=== PATIENT | male | born 1945 | race Caucasian/White ===

== ENCOUNTER 2020-10-25 19:03 | Emergency (ER) | payer OTHER, SELFPAY ==
[2020-10-25 19:19] VITALS: BP 165/112; PULSE 68; RESP 18; TEMP 36.8; O2SAT 97; BMI 27.3
--- NOTE | 2020-10-25 19:32 | XR_ITS ---
WS: [id number] Left hand, 3 views, 10/25/2020 Clinical Data: pain Comparison: None. Findings: No fractures or dislocations are seen. The soft tissues are unremarkable. The joint spaces are not re markable. XR/XR hand LT min 3V* [id number] Impression: Negative left hand.
--- NOTE | 2020-10-25 19:32 | XR_ITS ---
WS: [id number] Left shoulder, 3 views, 10/25/2020 Clinical Data: pain Comparison: None. Findings: No fractures or dislocations are seen. The AC joint is normal. The adjacent left clavicle, left scapu la and ribs are normal. The soft tissues are unremarkable. XR/XR shoulder LT min 2V* [id number] Impression: Negative left shoulder.
--- NOTE | 2020-10-25 19:36 | W.ED.EXTPRO ---
HPI - Extremity Problem General: Chief complaint: Extremity Injury, Upper Stated complaint: left arm injury Time Seen by Provider: 10/25/20 19:27 Source: patient Mode of arrival: ambulatory Limitations: no limitations History of Present Illness: HPI Narrative: Patient fell in his yard 3 days ago injuring his left shoulder and left hand. He states he had an abrasion over his left hand from his dog prior to his fall. He states he does develop soft tissue swelling to the dorsum of his left hand and is mildly warm. Complains of mild pain to the left anterior shoulder where he has a mild old ecchymosis. Patient denies any neurological changes. He denies any other injuries. Denies any pain to the chest abdomen pelvis neck or back. He denies any other pains through his other extremities. No head injury. MD Complaint: extremity pain and extremity swelling Onset (ago): day(s) (3) Pain Consistency: constant Location: left and upper extremity Severity scale (1-10): 3 Quality: aching Radiation: none Relieving factors: nothing Exacerbating factors: nothing Associated symptoms: Reports myalgias and rash; Deny arthralgias, chest pain, fever(s) or short of breath Review of Systems Const: Denies: fever(s), chills or body aches Eyes: Denies: change in vision ENMT: Denies: throat pain Card: Denies: chest pain Resp: Denies: dyspnea or wheezing GI: Denies: abdominal pain, nausea or vomiting : Denies: flank pain Musc: Reports: extremity pain and extremity swelling; Denies: neck pain, back pain, joint pain, joint swelling, joint redness, joint warmth or joint stiffness Skin/Breast: Reports: rash Neuro: Denies: headache(s) or numbness in extremities Psych: Denies: anxiety [place]/Lymph: Denies: enlarged lymph nodes Physical Exam Const: COMMON NORMALS: no acute distress, patient oriented x3, no limitations and well nourished EXAM LIMITATIONS: altered mental status GENERAL APPEARANCE: cooperative HENMT: COMMON NORMALS: normocephalic and atraumatic HEAD & SCALP: normocephalic and atraumatic FACE & SINUS: normal facial exam Eye: COMMON NORMALS: EOMs intact bilaterally Neck/C-Spine: COMMON NORMALS: full ROM, no lymphadenopathy, supple and no meningeal signs GENERAL: Yes normal visual inspection Lymph: LYMPHATIC: no lymphadenopathy noted Chest: COMMONS NORMALS: normal inspection of the chest and normal palpation of entire chest wall CHEST: No Ecchymosis present and No rash Resp: COMMON NORMALS: normal respiratory effort, No retractions and clear to auscultation bilaterally EFFORT & INSPECTION: No respiratory distress AUSCULTATION: clear to auscultation bilaterally Cardio: COMMON NORMALS: regular rate, regular rhythm and Peripheral pulses 2+ throughout JUGULAR VENOUS DISTENTION: no JVD RATE: regular rate RHYTHM: regular rhythm PERIPHERAL PULSES: Peripheral pulses 2+ throughout GI: COMMON NORMALS: Normal to inspection, nondistended, normoactive bowel sounds present and non-tender : COMMON NORMALS: Yes no CVA tenderness BLADDER/KIDNEY EXAM: Yes no CVA tenderness Back/Pelvis: COMMON NORMALS: no CVA tenderness Extremity: COMMON NORMALS: full ROM, capillary refill normal and no joint enlargement NARRATIVE EXTREMITY EXAM: Mild soft tissue swelling to the dorsum of the left hand with overlying abrasion. No fluctuance or abscess. Mild cellulitis. Normal range of motion of left hand and wrist. Left forearm is normal. Left elbow is normal. Left upper arm is normal. Patient does have mild pain to the left anterior shoulder but has normal range of motion and no crepitus. No dislocation. Neuro: COMMON NORMALS: patient oriented x3, CN's II-XII intact bilaterally, no focal motor deficits and no sensory deficits noted MENINGEAL SIGNS: Yes no meningeal signs Psych: COMMON NORMALS: mental status grossly normal and Normal thought process present THOUGHT PROCESS: Normal thought process present Skin: NARRATIVE SKIN EXAM: Mild cellulitis to the dorsum of the left hand with overlying abrasion that is superficial.See extremity exam. Course Vital Signs: Vital signs: Vital Signs Temperature 98.3 F 10/25/20 19:19 Pulse Rate 68 10/25/20 19:19 Respiratory Rate 18 10/25/20 19:19 Blood Pressure 165/112 10/25/20 19:19 Pulse Oximetry 97 10/25/20 19:19 MDM - Extremity (Nontraumatic) MDM Narrative: Medical decision making narrative: Left hand cellulitis, left hand abrasion, left hand contusion, left hand fracture, left shoulder sprain, left shoulder contusion, left shoulder fracture. Imaging Data^: Xray Ortho: Attestation: I personally reviewed and interpreted this imaging study as follows: My impression: Left shoulder shows possible mild AC separation. Otherwise may be normal. No fracture seen. Left hand appears normal. No foreign body seen no fracture seen. Discharge Plan Discharge Condition: Stable Prescriptions: New cephalexin 500 mg capsule 500 mg PO QID 7 Days Qty: 28 RF: 0 hydrocodone-acetaminophen 5-325 mg tablet 1 tab PO Q6H PRN (Reason: pain) Qty: 10 RF: 0 Discharge Orders: Discharge ED (Routine); Ordered 10/25/20 Ordered By: Cornelio West Referrals: Brook Oseguera MD [Physician] - 4-7 days (as needed. You may have a strain of your Left AC joint.) Discharge Diet: Advance as tolerated Discharge Activity: Resume usual activity Patient Instructions: Cellulitis Activity Restrictions/Additional Instructions: Start cephalexin antibiotic and approximately 16 hours. Return if worse. You may have a left shoulder AC mild separation. Likely no surgical intervention. No fracture seen in your left hand. Coding Level of Care Code ED Theatre Program Director for Radha Fwd Exam Comprehensive
[2020-10-25] MEDS: cefTRIAXone 1,000 MG in lidocaine 1% 2.1 ML 1 MG IM (19:48)
== END 2020-10-25 20:55 | disposition home health service, planned readmission (86) ==
PROVIDERS: Emergency Provider Family Medicine
DX: S49.92XA Unspecified injury of left shoulder and upper arm, initial encounter (principal); W19.XXXA Unspecified fall, initial encounter
CPT/HCPCS: 73030; 73130; 96372; 99283; J0696

== ENCOUNTER 2021-05-02 18:53 | Emergency (ER) | payer OTHER, SELFPAY ==
[2021-05-02 19:51] VITALS: BP 160/108; PULSE 62; RESP 18; TEMP 36.8; O2SAT 97; BMI 32.3
--- NOTE | 2021-05-02 19:55 | XRR_ITS ---
PROCEDURE INFORMATION: Exam: XR Left Ribs with PA Chest Exam date and time: 05/02/2021 7:55 PM Age: 75 years old Clinical indication: Other: Lt. Rib pain; Additional info: Injury, left posterior rib pain TECHNIQUE: Imaging protocol: XR Left ribs with PA chest. Views: 3 views COMPARISON: CR XR shoulder LT min 2V* [id number] 10/25/2020 7:52 PM FINDINGS: Lungs: Lungs are clear bilaterally. Pleural spaces: No pleural effusion. No pneumothorax. Heart/Mediastinum: The cardiac silhouette is mildly enlarged. Mediastinal contours are unremarkable. Bones/joints: Degenerative changes in the spine and shoulders. No acute fracture. XR/XR ribs LT mn 3V w CXR1V [id number] IMPRESSION: 1. No acute cardiopulmonary process. 2. No acute fracture. 3. CT scan of the chest with contrast would be recommended if there is continuing clinical concern for thoracic injury. 4. Incidental/nonacute findings are listed in the report. Radiation Dose CTDIVOL = (mGy): DLP = (mGy-cm)
--- NOTE | 2021-05-02 19:56 | W.ED.BACK ---
HPI - Back Pain/Injury General: Chief Complaint: Back Pain/Injury Stated Complaint: Injury: Left ADB Pain Time Seen by Provider: 05/02/21 19:56 History of Present Illness: HPI Narrative: Patient on Saturday had slipped and fell landing onto his left posterior back against a piece of landscaping timber while moving a couch.. Since then patient has had pain in tenderness to the left posterior ribs just below his shoulder blade. Patient has good range of motion of the shoulders denies pain with his back. Patient reports some pain with deep inspiration. Patient appears well. Patient appears in mild pain that exacerbates with certain movement and palpation. Review of Systems General: Reports: 10 or more systems reviewed and unremarkable except in HPI and below Musc: Reports: other (Left rib pain) Physical Exam Const: COMMON NORMALS: no acute distress and patient oriented x3 GENERAL APPEARANCE: cooperative HENMT: COMMON NORMALS: normocephalic and Normal external nose present HEAD & SCALP: normal to inspection and normocephalic NOSE: Normal external nose present Eye: GENERAL EYE: appearance normal, both eyes and all related structures Neck/C-Spine: COMMON NORMALS: full ROM Chest: CHEST: Yes tenderness rib (Posterior left lower ribs) Resp: COMMON NORMALS: normal respiratory effort and clear to auscultation bilaterally EFFORT & INSPECTION: Yes able to speak in complete sentences AUSCULTATION: clear to auscultation bilaterally Cardio: COMMON NORMALS: regular rate and regular rhythm RATE: regular rate RHYTHM: regular rhythm GI: COMMON NORMALS: non-tender Back/Pelvis: COMMON NORMALS: thoracic and lumbar spine normal to inspection Extremity: COMMON NORMALS: normal to inspection Neuro: COMMON NORMALS: patient oriented x3 and moves all extremities Psych: COMMON NORMALS: mental status grossly normal and cooperative Skin: COMMON NORMALS: no rashes or lesions noted GENERAL SKIN EXAM: no rashes or lesions noted Course Vital Signs: Vital signs: Vital Signs Temperature 98.2 F 05/02/21 19:51 Pulse Rate 62 05/02/21 19:51 Respiratory Rate 18 05/02/21 19:51 Blood Pressure 160/108 05/02/21 19:51 Pulse Oximetry 97 05/02/21 19:51 MDM - Back Pain/Injury MDM Narrative: Medical decision making narrative: 75-year-old male comes in with some left posterior rib pain. Patient appears well. Patient appears no acute distress. Patient states about 2 days ago he was lifting up a couch when he tripped and fell backwards striking a landscaping tender against his left posterior ribs. Patient had some pain and discomfort to the area since then. On exam respirations are even lungs are clear to auscultation. Skin is warm and dry. Vital signs are normal. Differential diagnosis includes but not limited to rib fracture, contusion, pneumothorax. Chest x-ray was normal. Rib films were negative for any acute fracture. Reviewed exam with patient with recommendations for treatment and follow-up. Patient was given a 7-1/2 mg hydrocodone with acetaminophen tablet in the ER. Reviewed record noted a previous prescription for hydrocodone in December of this year but no recent prescription was written for. Patient was recommended to use acetaminophen to help control pain and use hydrocodone for breakthrough pain. Patient reported understanding. Discharge Plan Discharge Patient Disposition: Home Clinical Impression: Contusion of rib on left side Qualifiers: Encounter type: initial encounter Qualified Code(s): S20.212A - Contusion of left front wall of thorax, initial encounter Condition: Stable Prescriptions: Continued hydrocodone-acetaminophen 5-325 mg tablet 1 tab PO Q6H PRN (Reason: pain) Qty: 10 RF: 0 Discharge Orders: Discharge ED (Routine); Ordered 05/02/21 Ordered By: Ruperto Almeida Discharge Diet: Usual diet Discharge Activity: Increase activity as tolerated Patient Instructions: Musculoskeletal Pain (ED), Opioid Safety Activity Restrictions/Additional Instructions: Activity as tolerated. Gentle stretching and range of motion exercises. Use acetaminophen to control pain. Use hydrocodone for breakthrough pain. Use ice and heat for further pain control. Follow-up with primary care for persistent complaints. Return to the ER for new concerns. Coding Level of Care Code ED Assembly Loader for Radha Fwefraín Exam Comprehensive
[2021-05-02] MEDS: HYDROcodone-acetaminophen 7.5-325 mg Tablet 1 TAB PO (20:39)
[2021-05-02 21:28] VITALS: PULSE 71; RESP 16; O2SAT 96
== END 2021-05-02 21:29 | disposition home or self-care (01) ==
PROVIDERS: Emergency Provider Nurse Practitioner Family
DX: S20.212A Contusion of left front wall of thorax, initial encounter (principal); W01.198A Fall on same level from slipping, tripping and stumbling with subsequent striking against other object, initial encounter; Z79.891 Long term (current) use of opiate analgesic
CPT/HCPCS: 71101; 99282

== ENCOUNTER 2021-09-23 17:32 | Emergency (ER) | payer OTHER, SELFPAY ==
[2021-09-23 17:42] VITALS: BP 165/106; PULSE 66; RESP 18; TEMP 36.7; O2SAT 98; BMI 22.8
--- NOTE | 2021-09-23 17:53 | ECG_ITS ---
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 Measurements Intervals [place] Rate: 63 P: 58 CT: 139 QRS: 35 QRSD: 131 T: -6 QT: 433 QTc: 445 Interpretive Statements ELECTRONIC VENTRICULAR PACEMAKER ABNORMAL RHYTHM ECG No previous ECG available for comparison Electronically Signed On 09-24-2021 17:26:00 CDT by Jovani Lyon M.D. [email or web address] [email or web address] Control Systemsuniversity hospitals [facility].[employer]/store/OM/[id number]
--- NOTE | 2021-09-23 17:57 | CTR_ITS ---
PROCEDURE INFORMATION: Exam: CT Head Without Contrast Exam date and time: 09/23/2021 6:21 PM Age: 76 years old Clinical indication: Other: Multiple falls / loss of balance; Additional info: Dizzy TECHNIQUE: Imaging protocol: Computed tomography of the head without contrast. Radiation optimization: All CT scans at this facility use at least one of these dose optimization techniques: automated exposure control; mA and/or kV adjustment per patient size (includes targeted exams where dose is matched to clinical indication); or iterative reconstruction. COMPARISON: No relevant prior studies available. RADIATION DOSE METRICS: Total DLP (mGy-cm): 807.6 FINDINGS: Brain: Mild atrophy and moderate white matter chronic microvascular changes are noted. No hemorrhage or evidence of acute infarction. Cerebral ventricles: No ventriculomegaly. Paranasal sinuses: Visualized sinuses are unremarkable. No fluid levels. Mastoid air cells: Visualized mastoid air cells are well aerated. Bones/joints: Unremarkable. No acute fracture. Soft tissues: Unremarkable. CT/CT head wo con* [id number] IMPRESSION: No acute intracranial abnormality
--- NOTE | 2021-09-23 17:57 | XRR_ITS ---
PROCEDURE INFORMATION: Exam: XR Right Elbow Exam date and time: 09/23/2021 5:15 PM Age: 76 years old Clinical indication: Injury or trauma; Fall; Blunt trauma (contusions or hematomas); Elbow; Right TECHNIQUE: Imaging protocol: XR Right elbow. Views: 3 or more views. COMPARISON: No relevant prior studies available. FINDINGS: Bones/joints: Mild degenerative changes are seen in the right elbow. No fracture or dislocation. Soft tissues: Normal. XR/XR elbow RT min 3V* [id number] IMPRESSION: No acute fracture or dislocation.
--- NOTE | 2021-09-23 17:57 | XRR_ITS ---
PROCEDURE INFORMATION: Exam: XR Left Elbow Exam date and time: 09/23/2021 5:12 PM Age: 76 years old Clinical indication: Injury or trauma; Fall; Blunt trauma (contusions or hematomas); Elbow; Left TECHNIQUE: Imaging protocol: XR Left elbow. Views: 3 or more views. COMPARISON: No relevant prior studies available. FINDINGS: Bones/joints: Mild degenerative changes are present in the ulnohumeral joint. No fracture or dislocation. Soft tissues: Normal. XR/XR elbow LT min 3V* [id number] IMPRESSION: No fracture or dislocation in the left elbow.
[2021-09-23 17:59] VITALS: BP 172/107; PULSE 65; O2SAT 96
--- NOTE | 2021-09-23 18:05 | ED_ITS ---
HPI - Fall General: Chief Complaint: Fall Stated Complaint: Falling alot with dizziness, losing balance Time Seen by Provider: 09/23/21 17:46 Source: patient Mode of arrival: ambulatory Limitations: no limitations History of Present Illness: 76-year-old male who states that he has frequent falls. He states this is actually been going on for roughly a year. He states that he has a real shuffling gait and once he gets to leaning forward he falls. He states he had 2 falls today. He states that he fell on his outside and also fell at the store he has bilateral elbow pain. States he had some slight dizziness he is never been seen for his falls does not use a cane or walker. Denies any hip pain or neck pain. Associated symptoms-after fall: Denies abdominal pain or chest pain Review of Systems Const: Denies: fever(s), chills, body aches or change in appetite Eyes: Denies: blurry vision or eye discomfort ENMT: Denies: throat pain or dental pain Card: Denies: chest pain Resp: Denies: dyspnea GI: Denies: abdominal pain, nausea, vomiting or diarrhea : Denies: dysuria Musc: Reports: extremity pain Skin/Breast: Denies: rash Neuro: Reports: frequent falls and dizziness Psych: Denies: depression Sanford/Lymph: Denies: easy bruising All/Imm: Denies: urticaria Physical Exam Const: COMMON NORMALS: no acute distress, patient oriented x3 and healthy appearing HENMT: COMMON NORMALS: normocephalic and atraumatic HEAD & SCALP: normocephalic and atraumatic Eye: COMMON NORMALS: Equal, round and reactive pupils present and EOMs intact bilaterally PUPIL: Yes Equal, round and reactive pupils present Neck/C-Spine: COMMON NORMALS: full ROM and supple Chest: COMMONS NORMALS: normal inspection of the chest and normal palpation of entire chest wall Resp: COMMON NORMALS: normal respiratory effort, No retractions, No use of accessory muscles and clear to auscultation bilaterally AUSCULTATION: clear to auscultation bilaterally Cardio: COMMON NORMALS: regular rate, regular rhythm and No murmurs present (Cardio) RATE: regular rate RHYTHM: regular rhythm GI: COMMON NORMALS: Normal to inspection, nondistended, normoactive bowel sounds present, Soft to palpation, non-tender and no masses PALPATION: Yes Soft to palpation Extremity: COMMON NORMALS: full ROM NARRATIVE EXTREMITY EXAM: Abrasions to bilateral elbows with slight tenderness no deformity Neuro: COMMON NORMALS: patient oriented x3, moves all extremities and no focal motor deficits Psych: COMMON NORMALS: mental status grossly normal, Normal thought process present and cooperative THOUGHT PROCESS: Normal thought process present Skin: COMMON NORMALS: no rashes or lesions noted and no wounds GENERAL SKIN EXAM: no rashes or lesions noted Course Vital Signs: Vital signs: Vital Signs Temperature 98.1 F 09/23/21 17:42 Pulse Rate 65 09/23/21 17:59 Respiratory Rate 18 09/23/21 17:42 Blood Pressure 172/107 09/23/21 17:59 Pulse Oximetry 96 09/23/21 17:59 MDM - Fall Medical Decision Making Patient presents here with multiple falls over the last year. I did inform patient he likely should start walking with a cane to prevent these falls since they are frequent his lab work head CT are all normal he stable for discharge follow-up with PCP. Lab Data : 09/23/21 18:06 09/23/21 18:06 Radiology Impressions Elbow X-Ray 09/23/21 17:57 IMPRESSION: No acute fracture or dislocation. Head CT 09/23/21 17:57 IMPRESSION: No acute intracranial abnormality Laboratory Results WBC 7.0 10^3/uL (4.0-10.0) 09/23/21 18:06 RBC 5.77 10^6/uL (4.1-5.3) H 09/23/21 18:06 Hgb 16.3 g/dL (11.7-16.6) 09/23/21 18:06 Hct 50.3 % (42.0-52.0) 09/23/21 18:06 MCV 87.2 fl (80-94) 09/23/21 18:06 MCH 28.2 pg (28.0-34.0) 09/23/21 18:06 MCHC 32.4 g/dL (30.0-36.0) 09/23/21 18:06 RDW 12.5 % (12.1-15.1) 09/23/21 18:06 Plt Count 222 10^3/cmm (130-400) 09/23/21 18:06 MPV 10.4 fL (7.4-10.4) 09/23/21 18:06 Neut % (Auto) 69.6 % 09/23/21 18:06 Lymph % (Auto) 22.6 % 09/23/21 18:06 [place] % (Auto) 6.1 % 09/23/21 18:06 Eos % (Auto) 1.3 % 09/23/21 18:06 Baso % (Auto) 0.3 % 09/23/21 18:06 Neut # (Auto) 4.88 10^3/uL (1.8-7.7) 09/23/21 18:06 Lymph # (Auto) 1.6 10^3/uL (0.8-4.8) 09/23/21 18:06 [place] # (Auto) 0.4 10^3/uL (0.2-0.9) 09/23/21 18:06 Eos # (Auto) 0.1 10^3/uL (0.0-0.8) 09/23/21 18:06 Baso # (Auto) 0.0 10^3/uL (0.0-0.1) 09/23/21 18:06 Nucleated RBC % (auto) 0 % 09/23/21 18:06 Nucleated RBCs # 0.0 /100WBC 09/23/21 18:06 Sodium 139 mmol/L (136-145) 09/23/21 18:06 Potassium 4.2 mmol/L (3.5-5.1) 09/23/21 18:06 Chloride 103 mmol/L (98-107) 09/23/21 18:06 Carbon Dioxide 24 mmol/L (22-29) 09/23/21 18:06 Anion Gap 16.2 (5-19) 09/23/21 18:06 BUN 26 mg/dL (8-23) H 09/23/21 18:06 Creatinine 1.8 mg/dL (0.7-1.2) H 09/23/21 18:06 GFR Calculation Not Reportable 09/23/21 18:06 Glucose 85 mg/dL (65-115) 09/23/21 18:06 Calculated Osmolality 292 mOsm/kg (285-295) 09/23/21 18:06 Calcium 9.5 mg/dL (8.5-10.5) 09/23/21 18:06 Total Bilirubin 0.4 mg/dL (0.15-1.2) 09/23/21 18:06 AST 23 U/L (0-40) 09/23/21 18:06 ALT 14 U/L (0-41) 09/23/21 18:06 Alkaline Phosphatase 127 IU/L (40-130) 09/23/21 18:06 Total Protein 7.7 g/dL (6.6-8.7) 09/23/21 18:06 Albumin 4.4 g/dL (3.5-5.2) 09/23/21 18:06 Globulin 3.3 g/dL (1.3-4.6) 09/23/21 18:06 EKG Data EKG 1: I personally reviewed and interpreted this EKG as follows: EKG interpretation date: 09/23/21 EKG interpretation time: 17:08 Interpretation: paced hr 63 no t or t wave abnormalities qrs 131 qtc 440 Discharge Plan Discharge Patient Disposition: Home Clinical Impression: Falls frequently Abrasion of elbow Qualifiers: Encounter type: initial encounter Laterality: right Qualified Code(s): S50.311A - Abrasion of right elbow, initial encounter Condition: Stable Prescriptions: No Action hydrocodone-acetaminophen 5-325 mg tablet 1 tab PO Q6H PRN (Reason: pain) Qty: 10 0RF Discharge Orders: Discharge ED (Routine); Ordered 09/23/21 Ordered By: Dulce Braun Discharge Diet: Advance as tolerated Discharge Activity: Resume usual activity Patient Instructions: Abrasion (ED), Fall Prevention (ED) Coding Level of Care Code ED Invasive Cardiovascular Technologist for Radha Fwd Exam Comprehensive
[2021-09-23 18:18] LABS: Basophils % 0.3 %; Eosinophils # 0.1 10^3/uL (0.0-0.8); Eosinophils % 1.3 %; Hematocrit 50.3 % (42.0-52.0); Hemoglobin 16.3 g/dL (11.7-16.6); Lymphocytes # 1.6 10^3/uL (0.8-4.8); Lymphocytes % 22.6 %; Mean Corpuscular HGB Conc 32.4 g/dL (30.0-36.0); Mean Corpuscular Hemoglobin 28.2 pg (28.0-34.0); Mean Corpuscular Volume 87.2 fl (80-94); Mean Platelet Volume 10.4 fL (7.4-10.4); Monocytes # 0.4 10^3/uL (0.2-0.9); Monocytes % 6.1 %; Neutrophils # 4.88 10^3/uL (1.8-7.7); Neutrophils % 69.6 %; Nucleated Red Blood Cells % 0 %; Platelet Count 222 10^3/cmm (130-400); Red Blood Count 5.77 10^6/uL (4.1-5.3); Red Cell Distribution Width 12.5 % (12.1-15.1)
[2021-09-23 18:53] LABS: Alanine Aminotransferase 14 U/L (0-41); Albumin Level 4.4 g/dL (3.5-5.2); Alkaline Phosphatase 127 IU/L (40-130); Anion Gap 16.2 (5-19); Aspartate Amino Transferase 23 U/L (0-40); Blood Urea Nitrogen 26 mg/dL (8-23); Calcium 9.5 mg/dL (8.5-10.5); Carbon Dioxide 24 mmol/L (22-29); Chloride 103 mmol/L (98-107); Globulin 3.3 g/dL (1.3-4.6); Glucose 85 mg/dL (65-115); Osmolality Calculated 292 mOsm/kg (285-295); Potassium 4.2 mmol/L (3.5-5.1); Sodium 139 mmol/L (136-145); Total Bilirubin 0.4 mg/dL (0.15-1.2); Total Protein 7.7 g/dL (6.6-8.7)
== END 2021-09-23 19:50 | disposition home or self-care (01) ==
PROVIDERS: Emergency Provider Emergency Medicine
DX: R29.6 Repeated falls (principal); S50.311A Abrasion of right elbow, initial encounter; W19.XXXA Unspecified fall, initial encounter
CPT/HCPCS: 70450; 73080; 80053; 85025; 93005; 99282

== ENCOUNTER 2021-09-24 22:45 | Emergency (ER) | payer OTHER, SELFPAY ==
[2021-09-24 22:54] VITALS: BP 210/109; PULSE 64; RESP 18; TEMP 36.8; O2SAT 98; BMI 30.4
--- NOTE | 2021-09-24 23:59 | XRR_ITS ---
PROCEDURE INFORMATION: Exam: XR Left Hip Exam date and time: 09/24/2021 11:11 PM Age: 76 years old Clinical indication: Injury or trauma; Blunt trauma (contusions or hematomas); Left; Patient HX: C/O L hip pain after fall in yard; Additional info: Fall injury with hip pain TECHNIQUE: Imaging protocol: XR Left hip. Views: 2 or 3 views hip with pelvis when performed. COMPARISON: No relevant prior studies available. FINDINGS: Bones/joints: Unremarkable. No acute fracture. Soft tissues: Unremarkable. XR/XR hip LT 2-3V wo/w pel* [id number] IMPRESSION: No acute findings.
--- NOTE | 2021-09-24 23:59 | CTR_ITS ---
PROCEDURE INFORMATION: Exam: CT Cervical Spine Without Contrast Exam date and time: 09/25/2021 12:24 AM Age: 76 years old Clinical indication: Injury or trauma; Blunt trauma; Patient HX: C/O neck pain after fall in yard; Additional info: Fall and hit head-neck pain TECHNIQUE: Imaging protocol: Computed tomography images of the cervical spine without contrast. Radiation optimization: All CT scans at this facility use at least one of these dose optimization techniques: automated exposure control; mA and/or kV adjustment per patient size (includes targeted exams where dose is matched to clinical indication); or iterative reconstruction. COMPARISON: CT head wo con* [id number] 09/25/2021 12:21 AM RADIATION DOSE METRICS: Total DLP (mGy-cm): 563.44 FINDINGS: Bones/joints: See Discs/Spinal canal/Neural foramina finding. Discs/Spinal canal/Neural foramina: There is a diffuse loss of disc height seen within the cervical spine compatible with degenerative disc disease. A mild 2.3 mm anterior spondylolisthesis of C3 on C4 and 2 mm anterior spondylolisthesis C4 on C5 is seen likely secondary to the degenerative disc disease and laxity of the longitudinal ligaments. Lungs: Lung apices are normal. Soft tissues: Unremarkable. CT/CT cervical spin wo con* [id number] IMPRESSION: There are no acute osseous findings.
--- NOTE | 2021-09-24 23:59 | XRR_ITS ---
PROCEDURE INFORMATION: Exam: XR Left Hand Exam date and time: 09/24/2021 11:09 PM Age: 76 years old Clinical indication: Left; Patient HX: C/O L hand pain w lac to 4-5 fingers fell in yard; Additional info: Fall with laceration injury to 4th and 5th digits TECHNIQUE: Imaging protocol: XR Left hand. Views: 3 or more views. COMPARISON: CR XR hand LT min 3V* [id number] 10/25/2020 7:52 PM FINDINGS: Bones/joints: Normal. Soft tissues: There is swelling seen at the proximal interphalangeal joint of the 5th digit of the left hand. XR/XR hand LT min 3V* [id number] IMPRESSION: There are no acute osseous findings.
--- NOTE | 2021-09-24 23:59 | CTR_ITS ---
PROCEDURE INFORMATION: Exam: CT Head Without Contrast Exam date and time: 09/25/2021 12:21 AM Age: 76 years old Clinical indication: Injury or trauma; Blunt trauma (contusions or hematomas); Without loss of consciousness; Patient HX: C/O MADERA after fall in yard; Additional info: Fall and hit head TECHNIQUE: Imaging protocol: Computed tomography of the head without contrast. Radiation optimization: All CT scans at this facility use at least one of these dose optimization techniques: automated exposure control; mA and/or kV adjustment per patient size (includes targeted exams where dose is matched to clinical indication); or iterative reconstruction. COMPARISON: CT head wo con* [id number] 09/23/2021 6:21 PM RADIATION DOSE METRICS: Total DLP (mGy-cm): 848 FINDINGS: Brain: There is mild diffuse cerebral atrophy. Patchy areas of hypoattenuation are seen in the deep white matter of the cerebral hemispheres bilaterally compatible with deep white matter microvascular disease. Cerebral ventricles: No ventriculomegaly. Paranasal sinuses: Visualized sinuses are unremarkable. No fluid levels. Mastoid air cells: Visualized mastoid air cells are well aerated. Bones/joints: Unremarkable. No acute fracture. Soft tissues: There is soft tissue swelling and hematoma formation seen within the parietal scalp on the left. CT/CT head wo con* [id number] IMPRESSION: There are no acute intracranial findings.
[2021-09-25] MEDS: lidocaine 2% INJ 20 mL INJECTION
--- NOTE | 2021-09-25 00:01 | W.ED.FALL ---
HPI - Fall General: Chief Complaint: Fall Stated Complaint: Fell Left Hand Gash Time Seen by Provider: 09/24/21 23:45 History of Present Illness: Patient is a 76-year-old male comes to the ED after having a fall. Patient said he was walking outside in his yard and tripped falling onto gravel. He says his head bumped the shed he was next to. While falling his left hand hit a sharp edge of metal on the shed causing laceration to his fourth and fifth digit. Reports having some difficulty extending fourth digit on left hand. Says he has hypertension and takes lisinopril 10 mg daily. He has been out of his lisinopril for several weeks now and is trying to eat scheduled with his PCP at the [place] for follow-up. Associated symptoms-after fall: Denies abdominal pain, chest pain, headache(s), hematuria or neck pain Review of Systems Const: Denies: fever(s), chills or fatigue Eyes: Denies: change in vision or eye discomfort ENMT: Denies: throat pain, odynophagia, nasal discharge or nasal congestion Card: Denies: chest pain, palpitations, edema, swelling of feet/ankles, dyspnea on exertion or orthopnea Resp: Denies: dyspnea, productive cough or non-productive cough GI: Denies: abdominal pain, nausea, vomiting, diarrhea, constipation or hematochezia : Denies: flank pain, difficulty urinating, dysuria or hematuria Musc: Reports: limited range of motion (Left hand-fourth digit trouble extending finger.); Denies: neck pain, back pain or extremity swelling Skin/Breast: Reports: new lesions (2 lacerations-dorsal fourth and fifth digit); Denies: rash Neuro: Denies: headache(s), numbness in extremities or weakness in extremities [facility] ED PFSH: Medical History Hypertension Surgical History No pertinent past surgical history Physical Exam Const: COMMON NORMALS: no acute distress, patient oriented x3 and alert GENERAL APPEARANCE: cooperative and comfortable HENMT: COMMON NORMALS: normocephalic and atraumatic HEAD & SCALP: normocephalic and atraumatic; no Peo's sign and no raccoon eyes MOUTH: Normal oral and palatal mucosa present THROAT: posterior oropharynx normal and uvula midline Neck/C-Spine: COMMON NORMALS: supple GENERAL: Yes normal visual inspection Resp: COMMON NORMALS: normal respiratory effort, No retractions, No use of accessory muscles and clear to auscultation bilaterally AUSCULTATION: clear to auscultation bilaterally Cardio: COMMON NORMALS: regular rate, regular rhythm, S1 normal heart sound present, S2 normal heart sound present, No gallops present (Cardio), No clicks present (Cardio), No murmurs present (Cardio) and Peripheral pulses 2+ throughout RATE: regular rate RHYTHM: regular rhythm HEART SOUNDS: S1 normal heart sound present and S2 normal heart sound present PERIPHERAL PULSES: Peripheral pulses 2+ throughout GI: COMMON NORMALS: Normal to inspection, nondistended, normoactive bowel sounds present, Soft to palpation, non-tender and no masses PALPATION: Yes Soft to palpation : COMMON NORMALS: Yes no CVA tenderness BLADDER/KIDNEY EXAM: Yes no CVA tenderness Back/Pelvis: COMMON NORMALS: no CVA tenderness Extremity: NARRATIVE EXTREMITY EXAM: Left hand?fifth digit full range of motion. 2 cm linear laceration over dorsal aspect. No nailbed or nail damage noted. Fourth digit?1.5 cm linear laceration over dorsal PIP joint region. Flexion intact, but patient unable to extend digit distally from PIP joint. Findings suggestive of likely a tendon laceration. Neuro: COMMON NORMALS: patient oriented x3, CN's II-XII intact bilaterally, moves all extremities, no focal motor deficits and no sensory deficits noted SENSORIUM/ORIENTATION: Yes alert SPEECH: speech normal Skin: GENERAL SKIN EXAM: dry skin Procedures Laceration Laceration 1: Site: hand (5th digit) Side (If applicable): left Size (cm): 2 Description: linear and clean Depth: simple, single layer Local Anesthetic: lidocaine 2% (Digital nerve block performed) Amount of anesthesia used (mL): 6 Pre-repair: irrigated extensively (With normal saline and beta iodine wash.) Skin layer closed with: nylon Size (cm): 4-0 Number of sutures: 6 Technique: simple, interrupted Laceration 2: Site: hand (4th digit) Side (If applicable): left Size (cm): 1.5 Description: linear and clean Depth: simple, single layer Local Anesthetic: lidocaine 2% Amount of anesthesia used (mL): 5 Pre-repair: irrigated extensively (With normal saline and beta iodine wash.) Skin layer closed with: nylon Size (cm): 4-0 Number of sutures: 6 Technique: simple, interrupted Nerve Block Nerve Block 1: Time out performed: Yes Local Anesthetic: lidocaine 2% Amount of anesthesia used (mL): 6 Side: left Nerve Blocks: digital (5th digit) Procedure Successful: Yes Patient Tolerated Procedure: well Complications: none Course Vital Signs: Vital signs: Vital Signs Temperature 98.2 F 09/24/21 22:54 Pulse Rate 84 09/25/21 03:00 Respiratory Rate 18 09/25/21 03:00 Blood Pressure 170/100 09/25/21 03:00 Pulse Oximetry 95 09/25/21 03:00 MDM - Fall Medical Decision Making Patient is a 76-year-old male comes to the ED after fall. Patient tripped over something outside and he fell and hit his head on shed. While falling his left hand hit a metal edge of the shed causing a laceration to his fourth and fifth digits. Denies any loss of consciousness. He is complaining of having some left hip pain as well. Vitals are stable. Neuro exam is benign. Patient has a laceration over the dorsal aspect of his fifth digit that is approximately 2 cm in length. He has another 1.5 cm linear laceration over fourth digit dorsal PIP joint region and patient is having problems extending distal aspect of finger past PIP joint. Findings suggestive of likely a lacerated extensor tendon digit. X-rays of left hip and left hand showed no acute fractures or findings. CT of head and cervical spine showed no acute fractures or intracranial findings. Patient is laceration site was irrigated extensively with normal saline and beta iodine. On the fifth digit a nerve block was used with lidocaine 2% and on the fourth digit local lidocaine 2% was used. 6 sutures were placed in the fifth digit laceration and 5 sutures were placed in the fourth digit laceration. Patient's fourth digit was put in finger splint. I placed an order with case management for patient to be referred to Ortho for further follow-up of fourth digit extensor tendon laceration. Patient was discharged home with a prescription for hydrocodone for pain and cephalexin as prophylactic treatment. He was told that case management will contact him in the next couple days to set up an appointment with Ortho. Return to ED precautions given. Patient understood and agreed with plan. Lab Data Radiology Impressions Cervical Spine CT 09/24/21 23:59 IMPRESSION: There are no acute osseous findings. Hand X-Ray 09/24/21 23:59 IMPRESSION: There are no acute osseous findings. Head CT 09/24/21 23:59 IMPRESSION: There are no acute intracranial findings. Hip/Pelvis X-Ray 09/24/21 23:59 IMPRESSION: No acute findings. Discharge Plan Discharge Patient Disposition: Home Clinical Impression: Finger laceration involving tendon Qualifiers: Encounter type: initial encounter Qualified Code(s): S61.219A - Laceration without foreign body of unspecified finger without damage to nail, initial encounter Condition: Stable Prescriptions: New cephalexin 500 mg capsule 500 mg PO Q6H 7 Days Qty: 28 0RF lisinopril 10 mg tablet 10 mg PO DAILY Qty: 30 0RF No Action hydrocodone-acetaminophen 5-325 mg tablet 1 tab PO Q6H PRN (Reason: pain) Qty: 10 0RF Discharge Orders: Discharge ED (Routine); Ordered 09/25/21 Ordered By: Omar Limon Discharge Diet: Regular Discharge Activity: Increase activity as tolerated Activity Restrictions/Additional Instructions: Follow-up with medical provider as directed. Case management should be contacting you in the next 2 days to set up an appointment with Ortho for follow-up of extensor tendon finger laceration. Wear finger splint daily. Keep laceration sites dry for the next 24 hours. Make sure to clean and bandage daily. Medications as prescribed. Return to the ER or your medical provider if condition worsens. Please read and understand discharge instructions. Thank you for choosing [facility] for your healthcare needs today. Please realize this is an emergency room and that we are providing you with a medical screening exam and this may not be complete and all inclusive of all the testing and or work up that you may need to determine your ailment or severity of your illness. It is very important that you follow up as instructed or that you return to the Emergency Department should you have concerns or if your condition changes or worsens in any way. Coding Level of Care Code ED Integrated Circuit Ic Layout Designer for aRdha Padilla Exam Comprehensive
[2021-09-25] MEDS: cephALEXin 500 mg Capsule PO (02:53)
[2021-09-25] MEDS: HYDROcodone-acetaminophen 5-325 mg Tablet 1 TAB PO (02:54)
[2021-09-25] MEDS: neomycin-poly-bacitracin oint 0.9 gm Pkt 1 APPLIC TOPICAL (02:54)
[2021-09-25] MEDS: lisinopril 10 mg Tablet PO (02:59)
[2021-09-25 03:00] VITALS: BP 170/100; PULSE 84; RESP 18; O2SAT 95
--- NOTE | 2021-09-25 10:39 | DCPLANNER ---
Addendum entered by Patsy Niño 10/03/21 14:03: department store general manager called patient to see where patient would like to be referred to, unable to speak with anyone at this time. Addendum entered by Patsy Niño 10/02/21 08:35: late entry - food general manager called patient on 09.26.21, 09.27.21, 09.28.21 to inform patient that the Dr. Oseguera from ortho stated that patient would need to see a hand specialist. department store general manager called phone number [phone] left a message for patient to return sap architect phone call. department store general manager also called phone number [phone], left a voicemail. Addendum entered by Patsy Niño 09/25/21 10:51: Patient has [employer] insurance, food general manager sent patients information to October, with [employer] [facility] [employer] community, so that the authorization process could be started for patient. Original Note: department store general manager had message to schedule a follow up appointment for patient with ortho. department store general manager called the ortho clinic, spoke with Enriqueta, gave clinic patients information. department store general manager was told that patients information would be printed and reviewed. Clinic will call patient with appointment information.
== END 2021-09-25 03:14 | disposition home or self-care (01) ==
PROVIDERS: Emergency Provider Physician Assistant
DX: S61.217A Laceration without foreign body of left little finger without damage to nail, initial encounter (principal); S61.215A Laceration without foreign body of left ring finger without damage to nail, initial encounter; I10 Essential (primary) hypertension; W01.118A Fall on same level from slipping, tripping and stumbling with subsequent striking against other sharp object, initial encounter
CPT/HCPCS: 70450; 72125; 73130; 73502; 99283

== ENCOUNTER 2022-01-23 18:38 | Emergency (ER) | payer OTHER, SELFPAY ==
[2022-01-23 19:45] VITALS: BP 165/100; PULSE 61; RESP 18; TEMP 37.1; O2SAT 98; BMI 24.5
[2022-01-23 21:29] LABS: Add Urine Culture? Yes; Add Urine Microscopic? YES; Bacteria Urine 4+ /hpf; Bilirubin Urine Neg (Negative); Blood Urine 3+ (Negative); Glucose Urine UA Norm (Normal); Ketones Urine Negative (Negative); Leukocyte Esterase Urine 2+ (Negative); Nitrate Urine Positive (Negative); Protein Urine 1+ (Negative); RBC Urine 0-4 /hpf (0-2); Specific Gravity, Urine 1.015 (1.005-1.030); Squamous Epithelial Cell Urine 0-4 /hpf (0-5); Urine Appearance Cloudy (CLEAR); Urine Color Yellow (Yellow); Urobilinogen Urine Norm (Negative); WBC Urine TOO NUMEROUS TO CNT /hpf (0-5); pH Urine 5 (5-7)
[2022-01-23 22:27] LABS: Basophils % 0.4 %; Eosinophils # 0.1 10^3/uL (0.0-0.8); Eosinophils % 1.9 %; Hematocrit 43.8 % (42.0-52.0); Hemoglobin 14.9 g/dL (11.7-16.6); Lymphocytes # 2.4 10^3/uL (0.8-4.8); Lymphocytes % 32.5 %; Mean Corpuscular Hemoglobin 28.7 pg (28.0-34.0); Mean Corpuscular Volume 84.2 fl (80-94); Mean Platelet Volume 10.1 fL (7.4-10.4); Monocytes # 0.5 10^3/uL (0.2-0.9); Monocytes % 6.8 %; Neutrophils # 4.28 10^3/uL (1.8-7.7); Neutrophils % 58.1 %; Nucleated Red Blood Cells % 0 %; Platelet Count 263 10^3/cmm (130-400); Red Cell Distribution Width 12.7 % (12.1-15.1); White Blood Count 7.4 10^3/uL (4.0-10.0)
[2022-01-23 22:49] LABS: Alanine Aminotransferase 11 U/L (0-41); Alkaline Phosphatase 97 IU/L (40-130); Anion Gap 14.3 (5-19); Aspartate Amino Transferase 18 U/L (0-40); Blood Urea Nitrogen 27 mg/dL (8-23); Calcium 9.2 mg/dL (8.5-10.5); Carbon Dioxide 25 mmol/L (22-29); Chloride 105 mmol/L (98-107); Globulin 2.6 g/dL (1.3-4.6); Glucose 80 mg/dL (65-115); Lipase 71 U/L (13-60); Osmolality Calculated 294 mOsm/kg (285-295); Potassium 4.3 mmol/L (3.5-5.1); Sodium 140 mmol/L (136-145); Total Bilirubin 0.5 mg/dL (0.15-1.2); Total Protein 6.6 g/dL (6.6-8.7)
--- NOTE | 2022-01-24 00:25 | W.ED.ABDPA2 ---
HPI - Abdominal Pain General: Chief Complaint: Abdominal Pain Stated Complaint: [place] Pee\ABD Pain Time Seen by Provider: 01/24/22 00:25 History of Present Illness: 76-year-old male patient comes in today with complaints of urinary difficulty. Patient reports frequency and decreased output. Patient denies any nausea or vomiting. Patient appears nontoxic. Patient appears in no pain. Review of Systems General: Reports: 10 or more systems reviewed and unremarkable except in HPI and below : Reports: difficulty urinating, urinary frequency and urinary urgency PFSH ED PFSH: Medical History Hypertension Surgical History No pertinent past surgical history Physical Exam Const: COMMON NORMALS: alert HENMT: COMMON NORMALS: normocephalic HEAD & SCALP: normocephalic Neck/C-Spine: COMMON NORMALS: full ROM Resp: COMMON NORMALS: normal respiratory effort and clear to auscultation bilaterally AUSCULTATION: clear to auscultation bilaterally Cardio: COMMON NORMALS: regular rate RATE: regular rate GI: COMMON NORMALS: Soft to palpation and non-tender PALPATION: Yes Soft to palpation : COMMON NORMALS: Yes no CVA tenderness BLADDER/KIDNEY EXAM: Yes no CVA tenderness Back/Pelvis: COMMON NORMALS: no CVA tenderness Extremity: COMMON NORMALS: no pedal edema Neuro: SENSORIUM/ORIENTATION: Yes alert Skin: COMMON NORMALS: no rashes or lesions noted GENERAL SKIN EXAM: no rashes or lesions noted Course Vital Signs: Vital signs: Vital Signs Temperature 98.7 F 01/23/22 19:45 Pulse Rate 61 01/23/22 19:45 Respiratory Rate 18 01/23/22 19:45 Blood Pressure 165/100 01/23/22 19:45 Pulse Oximetry 98 01/23/22 19:45 MDM - Abdominal Pain Medical Decision Making Patient came in today for concerns of urinary tract infection. On exam patient appears nontoxic. Abdomen is soft with no palpable bladder. Vital signs are normal except for a blood pressure of 165/100. Differential diagnosis includes urinary retention, urinary tract infection, pyelonephritis. No signs of serious illness is noted at this time. Urinalysis did note nitrates and significant amount of white blood cells. Patient was given 1 g of Rocephin IM. Patient will be continued on cephalexin p.o. Encourage plenty of fluids and follow-up with primary care in 1 week for recheck. Patient reported understanding agreed to plan. Lab Data : 01/23/22 22:18 01/23/22 22:18 Labs/Radiology: Laboratory Results WBC 7.4 10^3/uL (4.0-10.0) 01/23/22 22:18 RBC 5.20 10^6/uL (4.1-5.3) 01/23/22 22:18 Hgb 14.9 g/dL (11.7-16.6) 01/23/22 22:18 Hct 43.8 % (42.0-52.0) 01/23/22 22:18 MCV 84.2 fl (80-94) 01/23/22 22:18 MCH 28.7 pg (28.0-34.0) 01/23/22 22:18 MCHC 34.0 g/dL (30.0-36.0) 01/23/22 22:18 RDW 12.7 % (12.1-15.1) 01/23/22 22:18 Plt Count 263 10^3/cmm (130-400) 01/23/22 22:18 MPV 10.1 fL (7.4-10.4) 01/23/22 22:18 Neut % (Auto) 58.1 % 01/23/22 22:18 Lymph % (Auto) 32.5 % 01/23/22 22:18 [place] % (Auto) 6.8 % 01/23/22 22:18 Eos % (Auto) 1.9 % 01/23/22 22:18 Baso % (Auto) 0.4 % 01/23/22 22:18 Neut # (Auto) 4.28 10^3/uL (1.8-7.7) 01/23/22 22:18 Lymph # (Auto) 2.4 10^3/uL (0.8-4.8) 01/23/22 22:18 [place] # (Auto) 0.5 10^3/uL (0.2-0.9) 01/23/22 22:18 Eos # (Auto) 0.1 10^3/uL (0.0-0.8) 01/23/22 22:18 Baso # (Auto) 0.0 10^3/uL (0.0-0.1) 01/23/22 22:18 Nucleated RBC % (auto) 0 % 01/23/22 22:18 Nucleated RBCs # 0.0 /100WBC 01/23/22 22:18 Sodium 140 mmol/L (136-145) 01/23/22 22:18 Potassium 4.3 mmol/L (3.5-5.1) 01/23/22 22:18 Chloride 105 mmol/L (98-107) 01/23/22 22:18 Carbon Dioxide 25 mmol/L (22-29) 01/23/22 22:18 Anion Gap 14.3 (5-19) 01/23/22 22:18 BUN 27 mg/dL (8-23) H 01/23/22 22:18 Creatinine 1.9 mg/dL (0.7-1.2) H 01/23/22 22:18 GFR Calculation Not Reportable 01/23/22 22:18 Glucose 80 mg/dL (65-115) 01/23/22 22:18 Calculated Osmolality 294 mOsm/kg (285-295) 01/23/22 22:18 Calcium 9.2 mg/dL (8.5-10.5) 01/23/22 22:18 Total Bilirubin 0.5 mg/dL (0.15-1.2) 01/23/22 22:18 AST 18 U/L (0-40) 01/23/22 22:18 ALT 11 U/L (0-41) 01/23/22 22:18 Alkaline Phosphatase 97 IU/L (40-130) 01/23/22 22:18 Total Protein 6.6 g/dL (6.6-8.7) 01/23/22 22:18 Albumin 4.0 g/dL (3.5-5.2) 01/23/22 22:18 Globulin 2.6 g/dL (1.3-4.6) 01/23/22 22:18 Lipase 71 U/L (13-60) H 01/23/22 22:18 Urine Color Yellow (Yellow) 01/23/22 20:50 Urine Appearance Cloudy (CLEAR) 01/23/22 20:50 Urine pH 5 (5-7) 01/23/22 20:50 Ur Specific [place] 1.015 (1.005-1.030) 01/23/22 20:50 Urine Protein 1+ (Negative) H 01/23/22 20:50 Urine Glucose (UA) Norm (Normal) 01/23/22 20:50 Urine Ketones Negative (Negative) 01/23/22 20:50 Urine Blood 3+ (Negative) H 01/23/22 20:50 Urine Nitrate Positive (Negative) H 01/23/22 20:50 Urine Bilirubin Neg (Negative) 01/23/22 20:50 Urine Urobilinogen Norm mg/dL (Negative) 01/23/22 20:50 Ur Leukocyte Esterase 2+ (Negative) H 01/23/22 20:50 Urine RBC 0-4 /hpf (0-2) H 01/23/22 20:50 Urine WBC Too numerous to cnt /hpf (0-5) H 01/23/22 20:50 Ur Squamous Epith Cells 0-4 /hpf (0-5) H 01/23/22 20:50 Amorphous Sediment Not Reportable 01/23/22 20:50 Urine Bacteria 4+ /hpf (NONE) H 01/23/22 20:50 Discharge Plan Discharge Patient Disposition: Home Clinical Impression: Cystitis Condition: Stable Prescriptions: New cephalexin 500 mg capsule 500 mg PO TID 7 Days Qty: 21 0RF No Action hydrocodone-acetaminophen 5-325 mg tablet 1 tab PO Q6H PRN (Reason: pain) Qty: 10 0RF lisinopril 10 mg tablet 10 mg PO DAILY Qty: 30 0RF Discharge Orders: Discharge ED (Routine); Ordered 01/24/22 Ordered By: Ruperto Almeida Discharge Diet: Usual diet Discharge Activity: Increase activity as tolerated Patient Instructions: Urinary Tract Infection in Men (ED) Activity Restrictions/Additional Instructions: Drink plenty of fluids. Take medications as directed. Follow-up with primary care for further instructions. Return to ER for new concerns or worsening symptoms. Coding Level of Care Code ED Collar Packer for Radha Padilla
[2022-01-24] MEDS: cefTRIAXone 1,000 MG in lidocaine 1% 2.1 ML 2.1 MG IM (01:04)
[2022-01-24 01:23] VITALS: BP 159/94; PULSE 62; RESP 18; TEMP 36.7; O2SAT 99
== END 2022-01-24 01:25 | disposition home or self-care (01) ==
PROVIDERS: Emergency Medicine; Emergency Provider Nurse Practitioner Family
DX: N30.90 Cystitis, unspecified without hematuria (principal); I10 Essential (primary) hypertension
CPT/HCPCS: 80053; 81001; 83690; 85025; 87077; 87086; 87186; 96372; 99284; J0696

== ENCOUNTER 2022-12-29 15:59 | Emergency (ER) | payer OTHER, SELFPAY ==
[2022-12-29 16:10] VITALS: BP 177/114; PULSE 70; RESP 16; TEMP 36.8; O2SAT 97; BMI 24.3
--- NOTE | 2022-12-29 17:04 | ECG_ITS ---
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 Measurements Intervals [place] Rate: 54 P: 61 MS: 142 QRS: 33 QRSD: 131 T: -14 QT: 446 QTc: 423 Interpretive Statements SINUS BRADYCARDIA RIGHT BUNDLE BRANCH BLOCK [120+ ms QRS DURATION, UPRIGHT V1, 40+ ms S IN I/aVL/V4/V5/V6] Compared to ECG 09/23/2021 17:08:52 Right bundle-branch block now present Ventricular-paced complex(es) or rhythm no longer present Electronically Signed On 12-29-2022 18:24:12 CDT by Neel Salcedo M.D. [id number]
--- NOTE | 2022-12-29 17:18 | ED_ITS ---
Documented by User: Franky Renee DO 12/31/22 11:44 HPI - Weakness General: Chief complaint: Weakness Stated complaint: weakness, dizzy, multiple falls Time Seen by Provider: 12/29/22 16:19 Source: patient History of Present Illness: 77-year-old male presents emergency room with complaints of dizziness and weakness for the last month. He had increased difficulty with standing and walking. He was recently told he has some mild dementia. He uses hydrocodone and lisinopril. He denies any chest or abdominal pain he does have some difficulty with frequent nocturia. No fevers sweats or chills he has had some loose stools but no actual diarrhea MD Complaint: generalized weakness Onset (ago): month(s) Duration: progressively worsening Location: generalized Relieving factors: none Exacerbating factors: none Associated symptoms: Denies chest pain, chills, confusion, melena, decreased appetite, diaphoresis, dysuria, easy bruising, fever(s), headache(s), myalgias, nausea, rash, short of breath, syncope or vomiting Review of Systems Const: Denies: fever(s), chills or diaphoresis ENMT: Denies: throat pain, ear or mastoid pain, nasal discharge or nasal congestion Card: Denies: chest pain or syncope Resp: Denies: dyspnea, productive cough or non-productive cough GI: Reports: abdominal pain; Denies: nausea, vomiting or melena : Denies: dysuria, urinary frequency or urinary urgency Skin/Breast: Denies: rash or pruritus Neuro: Denies: headache(s) or confusion [place]/Lymph: Denies: easy bruising PFS ED PFSH: Medical History Hypertension Surgical History No pertinent past surgical history Physical Exam Const: GENERAL APPEARANCE: cooperative and comfortable ORIENTATION/CONSCIOUSNESS: Yes awake HENMT: COMMON NORMALS: normocephalic, atraumatic and hearing grossly normal bilaterally HEAD & SCALP: normocephalic and atraumatic Resp: COMMON NORMALS: normal respiratory effort, No retractions, No use of accessory muscles and clear to auscultation bilaterally AUSCULTATION: clear to auscultation bilaterally Cardio: COMMON NORMALS: regular rate, regular rhythm and No murmurs present (Cardio) RATE: regular rate RHYTHM: regular rhythm GI: COMMON NORMALS: Soft to palpation and No hepatosplenomegaly present AUSCULTATION: Yes normoactive bowel sounds PALPATION: Yes Soft to palpation, No Tenderness to palpation present (GI), No Guarding due to palpation present (GI) and Yes No hepatosplenomegaly present Extremity: COMMON NORMALS: normal to inspection, capillary refill normal, no clubbing, cyanosis or edema, no calf tenderness and no pedal edema Skin: COMMON NORMALS: no rashes or lesions noted GENERAL SKIN EXAM: no rashes or lesions noted Course Vital Signs: Vital signs: Vital Signs Temperature 98.3 F 12/29/22 16:10 Pulse Rate 66 12/29/22 20:24 Respiratory Rate 13 12/29/22 20:24 Blood Pressure 186/102 12/29/22 20:24 Pulse Oximetry 99 12/29/22 20:24 Oxygen Delivery Me thod Room Air 12/29/22 16:10 MDM - Weakness Medical Decision Making Care signed out to Dr. Hummel at change of shift. See final notes for diagnosis and disposition. Medical Records I reviewed the patient's medical records. Lab Data I reviewed the patient's lab results. 12/29/22 17:14 12/29/22 17:14 Radiology Impressions Chest X-Ray 12/29/22 17:45 IMPRESSION: No acute findings. Head CT 12/29/22 17:45 IMPRESSION: No acute intracranial findings. Laboratory Results WBC 6.4 10^3/uL (4.0-10.0) 12/29/22 17:14 RBC 5.60 10^6/uL (4.1-5.3) H 12/29/22 17:14 Hgb 15.9 g/dL (11.7-16.6) 12/29/22 17:14 Hct 48.8 % (42.0-52.0) 12/29/22 17:14 MCV 87.1 fl (80-94) 12/29/22 17:14 MCH 28.4 pg (28.0-34.0) 12/29/22 17:14 MCHC 32.6 g/dL (30.0-36.0) 12/29/22 17:14 RDW 13.2 % (12.1-15.1) 12/29/22 17:14 Plt Count 189 10^3/cmm (130-400) 12/29/22 17:14 MPV 10.4 fL (7.4-10.4) 12/29/22 17:14 Neut % (Auto) 72.5 % 12/29/22 17:14 Lymph % (Auto) 18.9 % 12/29/22 17:14 [place] % (Auto) 6.9 % 12/29/22 17:14 Eos % (Auto) 1.1 % 12/29/22 17:14 Baso % (Auto) 0.3 % 12/29/22 17:14 Neut # (Auto) 4.63 10^3/uL (1.8-7.7) 12/29/22 17:14 Lymph # (Auto) 1.2 10^3/uL (0.8-4.8) 12/29/22 17:14 [place] # (Auto) 0.4 10^3/uL (0.2-0.9) 12/29/22 17:14 Eos # (Auto) 0.1 10^3/uL (0.0-0.8) 12/29/22 17:14 Baso # (Auto) 0.0 10^3/uL (0.0-0.1) 12/29/22 17:14 Nucleated RBC % (auto) 0 % 12/29/22 17:14 Nucleated RBCs # 0.0 /100WBC 12/29/22 17:14 Sodium 142 mmol/L (136-145) 12/29/22 17:14 Potassium 4.5 mmol/L (3.5-5.1) 12/29/22 17:14 Chloride 106 mmol/L (98-107) 12/29/22 17:14 Carbon Dioxide 26 mmol/L (22-29) 12/29/22 17:14 Anion Gap 14.5 (5-19) 12/29/22 17:14 BUN 22 mg/dL (8-23) 12/29/22 17:14 Creatinine 1.9 mg/dL (0.7-1.2) H 12/29/22 17:14 GFR Calculation Not Reportable 12/29/22 17:14 Glucose 81 mg/dL (65-115) 12/29/22 17:14 Calculated Osmolality 296 mOsm/kg (285-295) H 12/29/22 17:14 Calcium 9.0 mg/dL (8.5-10.5) 12/29/22 17:14 Total Bilirubin 0.5 mg/dL (0.15-1.2) 12/29/22 17:14 AST 25 U/L (0-40) 12/29/22 17:14 ALT 14 U/L (0-41) 12/29/22 17:14 Alkaline Phosphatase 114 U/L (40-130) 12/29/22 17:14 Total Protein 6.8 g/dL (6.6-8.7) 12/29/22 17:14 Albumin 4.1 g/dL (3.5-5.2) 12/29/22 17:14 Globulin 2.7 g/dL (1.3-4.6) 12/29/22 17:14 Urine Color Yellow (Yellow) 12/29/22 19:11 Urine Appearance Clear (CLEAR) 12/29/22 19:11 Urine pH 7 (5-7) 12/29/22 19:11 Ur Specific [place] 1.005 (1.005-1.030) 12/29/22 19:11 Urine Protein Trace (Negative) 12/29/22 19:11 Urine Glucose (UA) Norm (Normal) 12/29/22 19:11 Urine Ketones Negative (Negative) 12/29/22 19:11 Urine Blood Neg (Negative) 12/29/22 19:11 Urine Nitrate Negative (Negative) 12/29/22 19:11 Urine Bilirubin Neg (Negative) 12/29/22 19:11 Urine Urobilinogen Norm mg/dL (Negative) 12/29/22 19:11 Ur Leukocyte Esterase Negative (Negative) 12/29/22 19:11 Urine RBC 0-4 /hpf (0-2) H 12/29/22 19:11 Urine WBC None /hpf (0-5) 12/29/22 19:11 Ur Squamous Epith Cells 0-4 /hpf (0-5) H 12/29/22 19:11 Amorphous Sediment Not Reportable 12/29/22 19:11 Urine Bacteria Trace /hpf (NONE) 12/29/22 19:11 Discharge Plan Discharge Patient Disposition: Home Clinical Impression: Weakness, Uncontrolled hypertension Condition: Stable Prescriptions: New amlodipine 10 mg tablet 10 mg PO DAILY Qty: 30 0RF No Action hydrocodone-acetaminophen 5-325 mg tablet 1 tab PO Q6H PRN (Reason: pain) Qty: 10 0RF lisinopril 10 mg tablet 10 mg PO DAILY Qty: 30 0RF Discharge Orders: Discharge ED (Routine); Ordered 12/29/22 Ordered By: Shawn Hummel Patient Instructions: Weakness (ED), Hypertension (ED) Activity Restrictions/Additional Instructions: Check your blood pressure twice daily. If the systolic (top) number stays above 150, take the medication you were prescribed. Follow-up with your regular doct or and kidney doctor this coming week. Return for worsening weakness, mental status changes, other concerning symptoms. Coding Level of Care Code ED Habitat Management Coordinator for Chg Fwd Documented by User: Shawn Hummel DO 01/01/23 22:11 HPI - Weakness General: Chief complaint: Weakness Stated complaint: weakness, dizzy, multiple falls Time Seen by Provider: 12/29/22 16:19 PFSH ED PFSH: Medical History Hypertension Surgical History No pertinent past surgical history Course Vital Signs: Vital signs: Vital Signs Temperature 98.3 F 12/29/22 16:10 Pulse Rate 66 12/29/22 20:24 Respiratory Rate 13 12/29/22 20:24 Blood Pressure 186/102 12/29/22 20:24 Pulse Oximetry 99 12/29/22 20:24 Oxygen Delivery Vt thod Room Air 12/29/22 16:10 MDM - Weakness Medical Decision Making Care signed out to Dr. Hummel at change of shift. See final notes for diagnosis and disposition. This patient was checked out to me at shift change by the previous physician. He is notably hypertensive on examination. Exam is benign. Laboratory shows a creatinine of 1.9 with a history of chronic kidney disease. There is no other significant abnormality. He's improved at this point. Will elect to have him treat hypertension, check blood pressures as an outpatient, and report numbers to his physician. To return for any worsening symptoms. Lab Data 12/29/22 17:14 12/29/22 17:14 Radiology Impressions Chest X-Ray 12/29/22 17:45 IMPRESSION: No acute findings. Head CT 12/29/22 17:45 IMPRESSION: No acute intracranial findings. Laboratory Results WBC 6.4 10^3/uL (4.0-10.0) 12/29/22 17:14 RBC 5.60 10^6/uL (4.1-5.3) H 12/29/22 17:14 Hgb 15.9 g/dL (11.7-16.6) 12/29/22 17:14 Hct 48.8 % (42.0-52.0) 12/29/22 17:14 MCV 87.1 fl (80-94) 12/29/22 17:14 MCH 28.4 pg (28.0-34.0) 12/29/22 17:14 MCHC 32.6 g/dL (30.0-36.0) 12/29/22 17:14 RDW 13.2 % (12.1-15.1) 12/29/22 17:14 Plt Count 189 10^3/cmm (130-400) 12/29/22 17:14 MPV 10.4 fL (7.4-10.4) 12/29/22 17:14 Neut % (Auto) 72.5 % 12/29/22 17:14 Lymph % (Auto) 18.9 % 12/29/22 17:14 [place] % (Auto) 6.9 % 12/29/22 17:14 Eos % (Auto) 1.1 % 12/29/22 17:14 Baso % (Auto) 0.3 % 12/29/22 17:14 Neut # (Auto) 4.63 10^3/uL (1.8-7.7) 12/29/22 17:14 Lymph # (Auto) 1.2 10^3/uL (0.8-4.8) 12/29/22 17:14 [place] # (Auto) 0.4 10^3/uL (0.2-0.9) 12/29/22 17:14 Eos # (Auto) 0.1 10^3/uL (0.0-0.8) 12/29/22 17:14 Baso # (Auto) 0.0 10^3/uL (0.0-0.1) 12/29/22 17:14 Nucleated RBC % (auto) 0 % 12/29/22 17:14 Nucleated RBCs # 0.0 /100WBC 12/29/22 17:14 Sodium 142 mmol/L (136-145) 12/29/22 17:14 Potassium 4.5 mmol/L (3.5-5.1) 12/29/22 17:14 Chloride 106 mmol/L (98-107) 12/29/22 17:14 Carbon Dioxide 26 mmol/L (22-29) 12/29/22 17:14 Anion Gap 14.5 (5-19) 12/29/22 17:14 BUN 22 mg/dL (8-23) 12/29/22 17:14 Creatinine 1.9 mg/dL (0.7-1.2) H 12/29/22 17:14 GFR Calculation Not Reportable 12/29/22 17:14 Glucose 81 mg/dL (65-115) 12/29/22 17:14 Calculated Osmolality 296 mOsm/kg (285-295) H 12/29/22 17:14 Calcium 9.0 mg/dL (8.5-10.5) 12/29/22 17:14 Total Bilirubin 0.5 mg/dL (0.15-1.2) 12/29/22 17:14 AST 25 U/L (0-40) 12/29/22 17:14 ALT 14 U/L (0-41) 12/29/22 17:14 Alkaline Phosphatase 114 U/L (40-130) 12/29/22 17:14 Total Protein 6.8 g/dL (6.6-8.7) 12/29/22 17:14 Albumin 4.1 g/dL (3.5-5.2) 12/29/22 17:14 Globulin 2.7 g/dL (1.3-4.6) 12/29/22 17:14 Urine Color Yellow (Yellow) 12/29/22 19:11 Urine Appearance Clear (CLEAR) 12/29/22 19:11 Urine pH 7 (5-7) 12/29/22 19:11 Ur Specific [place] 1.005 (1.005-1.030) 12/29/22 19:11 Urine Protein Trace (Negative) 12/29/22 19:11 Urine Glucose (UA) Norm (Normal) 12/29/22 19:11 Urine Ketones Negative (Negative) 12/29/22 19:11 Urine Blood Neg (Negative) 12/29/22 19:11 Urine Nitrate Negative (Negative) 12/29/22 19:11 Urine Bilirubin Neg (Negative) 12/29/22 19:11 Urine Urobilinogen Norm mg/dL (Negative) 12/29/22 19:11 Ur Leukocyte Esterase Negative (Negative) 12/29/22 19:11 Urine RBC 0-4 /hpf (0-2) H 12/29/22 19:11 Urine WBC None /hpf (0-5) 12/29/22 19:11 Ur Squamous Epith Cells 0-4 /hpf (0-5) H 12/29/22 19:11 Amorphous Sediment Not Reportable 12/29/22 19:11 Urine Bacteria Trace /hpf (NONE) 12/29/22 19:11 Discharge Plan Discharge Patient Disposition: Home Clinical Impression: Weakness, Uncontrolled hypertension Condition: Stable Prescriptions: New amlodipine 10 mg tablet 10 mg PO DAILY Qty: 30 0RF No Action hydrocodone-acetaminophen 5-325 mg tablet 1 tab PO Q6H PRN (Reason: pain) Qty: 10 0RF lisinopril 10 mg tablet 10 mg PO DAILY Qty: 30 0RF Discharge Orders: Discharge ED (Routine); Ordered 12/29/22 Ordered By: Shawn Hummel Patient Instructions: Weakness (ED), Hypertension (ED) Activity Restrictions/Additional Instructions: Check your blood pressure twice daily. If the systolic (top) number stays above 150, take the medication you were prescribed. Follow-up with your regular doctor and kidney doctor this coming week. Return for worsening weakness, mental status changes, other concerning symptoms. Coding Level of Care Code ED Habitat Management Coordinator for Radha Padilla
[2022-12-29] MEDS: hyDRALAzine 20 mg/mL INJ 1 mL IVP (17:20)
[2022-12-29 17:28] VITALS: BP 201/113; PULSE 66; RESP 17; O2SAT 99
[2022-12-29 17:30] LABS: Basophils % 0.3 %; Eosinophils # 0.1 10^3/uL (0.0-0.8); Eosinophils % 1.1 %; Hematocrit 48.8 % (42.0-52.0); Hemoglobin 15.9 g/dL (11.7-16.6); Lymphocytes # 1.2 10^3/uL (0.8-4.8); Lymphocytes % 18.9 %; Mean Corpuscular HGB Conc 32.6 g/dL (30.0-36.0); Mean Corpuscular Hemoglobin 28.4 pg (28.0-34.0); Mean Corpuscular Volume 87.1 fl (80-94); Mean Platelet Volume 10.4 fL (7.4-10.4); Monocytes # 0.4 10^3/uL (0.2-0.9); Monocytes % 6.9 %; Neutrophils # 4.63 10^3/uL (1.8-7.7); Neutrophils % 72.5 %; Nucleated Red Blood Cells % 0 %; Platelet Count 189 10^3/cmm (130-400); Red Cell Distribution Width 13.2 % (12.1-15.1); White Blood Count 6.4 10^3/uL (4.0-10.0)
[2022-12-29 17:35] VITALS: BP 171/94; PULSE 75; RESP 20; O2SAT 100
--- NOTE | 2022-12-29 17:45 | CTR_ITS ---
PROCEDURE INFORMATION: Exam: CT Head Without Contrast Exam date and time: 12/29/2022 5:49 PM Age: 77 years old Clinical indication: Dizziness and weakness, extremity; Additional info: Weakness, ataxia and balance TECHNIQUE: Imaging protocol: Computed tomography of the head without contrast. Radiation optimization: All CT scans at this facility use at least one of these dose optimization techniques: automated exposure control; mA and/or kV adjustment per patient size (includes targeted exams where dose is matched to clinical indication); or iterative reconstruction. REPORTING DATA: Count of CT and Cardiac NM exams in prior 12 months: This patient has received 0 known CTs and 0 known cardiac nuclear medicine studies in the 12 months prior to the current study. COMPARISON: CT head wo con* [id number] 09/25/2021 12:21 AM RADIATION DOSE METRICS: Total DLP (mGy-cm): 1044.18 FINDINGS: Brain: Matthew cisterna magna which is a normal variant. Mild calcified intracranial atherosclerotic vessel disease. Mild to moderate cerebral atrophy and ischemic leukoencephalopathy. Cerebral ventricles: No ventriculomegaly. Paranasal sinuses: Visualized sinuses are unremarkable. No fluid levels. Mastoid air cells: Visualized mastoid air cells are well aerated. Bones/joints: Unremarkable. No acute fracture. Soft tissues: Unremarkable. CT/CT head wo con* [id number] IMPRESSION: No acute intracranial findings.
--- NOTE | 2022-12-29 17:45 | XRR_ITS ---
PROCEDURE INFORMATION: Exam: XR Chest Exam date and time: 12/29/2022 5:52 PM Age: 77 years old Clinical indication: Cough and dyspnea; Additional info: Dyspnea/cough TECHNIQUE: Imaging protocol: Radiologic exam of the chest. Views: 1 view. COMPARISON: CR XR ribs LT mn 3V w CXR1V [id number] 05/02/2021 8:02 PM FINDINGS: Lungs: Unremarkable. No consolidation. Pleural spaces: Unremarkable. No pleural effusion. No pneumothorax. Heart/Mediastinum: Unremarkable. No cardiomegaly. Bones/joints: Mild dextroscoliosis. XR/XR chest 1V portable [id number] IMPRESSION: No acute findings.
[2022-12-29 17:56] LABS: Anion Gap 14.5 (5-19); Blood Urea Nitrogen 22 mg/dL (8-23); Carbon Dioxide 26 mmol/L (22-29); Chloride 106 mmol/L (98-107); Sodium 142 mmol/L (136-145); Total Bilirubin 0.5 mg/dL (0.15-1.2); Total Protein 6.8 g/dL (6.6-8.7)
[2022-12-29 18:38] LABS: Alanine Aminotransferase 14 U/L (0-41); Aspartate Amino Transferase 25 U/L (0-40); Glucose 81 mg/dL (65-115); Osmolality Calculated 296 mOsm/kg (285-295)
[2022-12-29 18:39] LABS: Potassium 4.5 mmol/L (3.5-5.1)
[2022-12-29 18:41] LABS: Albumin Level 4.1 g/dL (3.5-5.2); Alkaline Phosphatase 114 U/L (40-130); Globulin 2.7 g/dL (1.3-4.6)
[2022-12-29 19:00] VITALS: BP 157/104; PULSE 81; RESP 18; O2SAT 99
[2022-12-29 19:33] LABS: Add Urine Microscopic? YES; Bilirubin Urine Neg (Negative); Blood Urine Neg (Negative); Glucose Urine UA Norm (Normal); Ketones Urine Negative (Negative); Leukocyte Esterase Urine Negative (Negative); Nitrate Urine Negative (Negative); Protein Urine Trace (Negative); Specific Gravity, Urine 1.005 (1.005-1.030); Urine Appearance Clear (CLEAR); Urine Color Yellow (Yellow); Urobilinogen Urine Norm (Negative); pH Urine 7 (5-7)
[2022-12-29 19:36] LABS: RBC Urine 0-4 /hpf (0-2)
[2022-12-29 19:37] LABS: Bacteria Urine TRACE /hpf; Squamous Epithelial Cell Urine 0-4 /hpf (0-5)
[2022-12-29 20:24] VITALS: BP 186/102; PULSE 66; RESP 13; O2SAT 99
[2022-12-29] MEDS: amlodipine 10 mg Tablet PO ×2 (20:24→20:33)
== END 2022-12-29 20:35 | disposition home or self-care (01) ==
PROVIDERS: Family Medicine; Emergency Provider Emergency Medicine
DX: R53.1 Weakness (principal); I10 Essential (primary) hypertension; F03.90 Unspecified dementia, unspecified severity, without behavioral disturbance, psychotic disturbance, mood disturbance, and anxiety
CPT/HCPCS: 70450; 71045; 80053; 81001; 85025; 93005; 96374; 99285; J0360

== ENCOUNTER 2023-06-18 06:00 | Outpatient (RCR) | payer OTHER, SELFPAY | END 2023-07-07 23:59 | disposition home or self-care (01) | LOC: GPT 06:00 | PROVIDERS: Visit Provider Nurse Practitioner Family | DX: R53.1 Weakness (principal) | CPT/HCPCS: 97110; 97162 ==

== ENCOUNTER 2023-07-08 06:00 | Outpatient (RCR) | payer OTHER, SELFPAY | END 2023-08-07 23:59 | disposition home or self-care (01) | LOC: GPT 06:00 | PROVIDERS: Visit Provider Nurse Practitioner Family | DX: R53.1 Weakness (principal) | CPT/HCPCS: 97110; 97530 ==

== ENCOUNTER 2023-08-13 16:43 | Outpatient (CLI) | payer OTHER, SELFPAY ==
--- NOTE | 2023-08-13 16:49 | XR_ITS ---
WS: [id number] XR knee LT 3V* [id number] REASON FOR EXAM: M25.562 - Pain in left knee FINDINGS: No fracture. The joint spaces of the knee are intact with minimal narrowing. Calcification is seen in the medial and lateral meniscus. IMPRESSION: No acute abnormality. Mild osteoarthritis.
== END 2023-08-13 16:44 | disposition home or self-care (01) ==
LOC: RAD 16:44
PROVIDERS: PCP Family Medicine; Visit Provider Nurse Practitioner Family
DX: M17.12 Unilateral primary osteoarthritis, left knee (principal); M25.462 Effusion, left knee
CPT/HCPCS: 73562

== ENCOUNTER 2023-10-14 12:26 | Emergency (ER) | payer OTHER, SELFPAY ==
[2023-10-14 12:33] VITALS: BP 159/93; PULSE 64; RESP 17; TEMP 36.9; O2SAT 96; BMI 24.6
--- NOTE | 2023-10-14 13:15 | USCV_ITS ---
Nadir Bar Age: 78 Gender: M : 1945 Exam Date: 10/14/2023 13:48 Ordering Phys: Dulce Braun MD Technologist: Exam Location: [facility] – [place] Indication: lt leg swelling PROCEDURES: Venous duplex imaging was performed in only the left lower extremity. The following venous structures were evaluated: common femoral vein, profunda vein, proximal portion of the greater saphenous vein, superficial femoral vein, and the popliteal vein. In addition, the posterior tibial and peroneal trunk were evaluated. FINDINGS: Normal 2-D Doppler and augmentation and compressibility throughout the lower extremity venous structures. Additional imaging through the proximal calf veins also reveals no thrombus. Limited evaluation of the greater saphenous vein is patent with no thrombus. CONCLUSIONS No DVT left lower extremity. Dr. Marilu Pineda DO (Electronically Signed) Final Date: 14 October 2023 14:17 S
--- NOTE | 2023-10-14 13:44 | ED_ITS ---
HPI - Extremity Problem General: Chief complaint: Recheck/Abnormal Lab/Rx Stated complaint: abnormal labs Time Seen by Provider: 10/14/23 13:37 Source: patient and family () Mode of arrival: wheelchair Limitations: no limitations History of Present Illness: Patient is a 78-year-old male who presents to the ED today along with his after they were told to come to the [facility] for a doppler of his left leg after an elevated D-dimer lab reading. Lab states they went to the [facility] several days ago for routine blood work. Unsure why they ran a D-dimer but states he has had some left leg swelling so they assume this is why. They were called today stating it was elevated. Patient has no complaint of chest pain, shortness of breath, difficulty breathing. He is not having any pain to the left leg. MD Complaint: extremity swelling Onset (ago): day(s) Location: left and lower extremity Radiation: none Relieving factors: nothing Exacerbating factors: nothing Associated symptoms: Reports no associated symptoms; Deny chest pain or fever(s) Context: other ([facility] due [facility]) Review of Systems Const: Denies: fever(s) Card: Denies: chest pain, palpitations or irregular heart rhythm Resp: Denies: dyspnea Musc: Reports: extremity swelling; Denies: extremity pain, joint pain or joint swelling Neuro: Denies: numbness in extremities, weakness in extremities or sensory changes [facility] ED PFSH: Medical History BPH (benign prostatic hyperplasia) GERD (gastroesophageal reflux disease) Moderate major depression Kidney disease Dementia Hypertension Surgical History History of appendectomy No pertinent past surgical history Family History Other Dementia Diabetes Social History Smoking and tobacco/nicotine status: current every day tobacco/nicotine user cigarettes Packs smoked per day: 1 Quit status (tobacco/nicotine): not considering quitting Alcohol intake: never Substance/Drug Use: never Physical Exam Const: COMMON NORMALS: no acute distress, patient oriented x3, no limitations, alert and well nourished Resp: COMMON NORMALS: normal respiratory effort and clear to auscultation bilaterally AUSCULTATION: clear to auscultation bilaterally Cardio: COMMON NORMALS: regular rate and regular rhythm RATE: regular rate RHYTHM: regular rhythm Extremity: COMMON NORMALS: full ROM, capillary refill normal, no joint enlargement and no calf tenderness NARRATIVE EXTREMITY EXAM: full painless ROM bilaterally; NV intact; bilateral mild edema L>R GENERAL: Yes normal exam except as noted Neuro: COMMON NORMALS: patient oriented x3, moves all extremities, no focal motor deficits and no sensory deficits noted SENSORIUM/ORIENTATION: Yes alert Skin: COMMON NORMALS: no rashes or lesions noted GENERAL SKIN EXAM: no rashes or lesions noted Course Vital Signs: Vital signs: Vital Signs Temperature 98.5 F 10/14/23 12:33 Pulse Rate 64 10/14/23 12:33 Respiratory Rate 17 10/14/23 12:33 Blood Pressure 159/93 10/14/23 12:33 Pulse Oximetry 96 10/14/23 12:33 Oxygen Delivery Me thod Room Air 10/14/23 12:33 MDM - Extremity (Nontraumatic) Medical Decision Making Patient here stating he was told to come here for an ultrasound of his left leg due to swelling and [facility]. Patient has no complaints of leg pain or calf pain. He has no chest pain, shortness of breath, difficulty breathing. He arrives with stable vital signs. Ultrasound performed which was negative for DVT. He states he has a [facility] the [facility] at [facility] today. Medical Records I reviewed the patient's medical records. All radiology interpretation(s) finalized by discharge Discharge Plan Discharge Patient Disposition: Home Clinical Impression: Left leg swelling Condition: Stable Prescriptions: No Action (DME) DME: Walker Unit See Rx Instructions .Route Qty: 1 0RF Rx Instructions: Please dispense one rolator walker with seat. amlodipine 10 mg tablet 10 mg PO DAILY Qty: 30 0RF lisinopril 10 mg tablet 10 mg PO DAILY Qty: 30 0RF Discharge Orders: Discharge ED (Routine); Ordered 10/14/23 Ordered By: Kristine Rios Referrals: David Laws DO [Primary Care Provider] - Activity Restrictions/Additional Instructions: As we discussed your ultrasound today of your left lower extremity is negative for DVT. [facility] at your currently scheduled appointment. Coding Level of Care Code ED Development Writer for Radha Padilla
== END 2023-10-14 14:32 | disposition home or self-care (01) ==
PROVIDERS: Emergency Provider Physician Assistant; PCP Family Medicine
DX: M79.89 Other specified soft tissue disorders (principal); F03.90 Unspecified dementia, unspecified severity, without behavioral disturbance, psychotic disturbance, mood disturbance, and anxiety; I10 Essential (primary) hypertension; F17.210 Nicotine dependence, cigarettes, uncomplicated
CPT/HCPCS: 93971; 99284

== ENCOUNTER 2023-10-30 12:35 | Outpatient (CLI) | payer OTHER, SELFPAY ==
--- NOTE | 2023-10-30 12:38 | MR_ITS ---
WS: [id number] MRI HEAD WITH CONTRAST TECHNIQUE: Sagittal T1, T2 axial, T2 axial FLAIR, axial susceptibility weighted imaging, axial diffus ion weighted images, and coronal T2 images were obtained. Pre and post-T1 axial and post T1 coronal i mages. ADC and FSPGR images. CLINICAL INFORMATION: ATAXIA/HX OF ISCHEMIC DEMENTIA W/INCREASED ISSUSES W/BALANCE COMPARISON: CT head 12/29/2022 FINDINGS: No evidence of restricted diffusion to suggest acute ischemia. Ventricular system and basal cisterns are patent. Advanced small vessel changes. Moderate parenchymal volume loss. Parenchymal volume loss worse in the frontal and temporal lobes. Moderate symmetric atrophy temporal lobes and hippocampal fo rmations. Normal optic chiasm and pituitary infundibulum. Small vessel changes in the [place]. Normal vascular richard w voids at the skull base. No extra-axial fluid collections. Tiny chronic lacunar infarct RIGHT midbr ain. No hemosiderin on the susceptibility weighted images. No abnormal gadolinium enhancement. Normal dura l venous sinuses. Artifact in the posterior fossa on the post gadolinium images. IMPRESSION: 1. No evidence of restricted diffusion to suggest acute ischemia. 2. Moderate to advanced small vessel changes with moderate parenchymal volume loss worse in the fron jayde lobes and temporal lobes. 3. Small vessel changes in the [place]. 4. Tiny chronic lacunar infarct RIGHT midbrain. 5. No hemosiderin on the susceptibly weighted images. 6. No abnormal gadolinium enhancement.
--- NOTE | 2023-10-30 12:38 | MR_ITS ---
WS: [id number] MRI LUMBAR SPINE NONCONTRAST TECHNIQUE: Sagittal T1, T2 and STIR imaging. Axial T1 and T2 imaging. CLINICAL INFORMATION: LUMBAR RADICULOPATHY W/SIGNIFICANT MOBILITY ISSUES COMPARISON: None. FINDINGS: Mild lumbar curve. No acute compression. No high-grade central canal stenosis. L1-L2: Slight retrolisthesis L1 on L2. Slight effacement of the ventral thecal sac. Moderate facet ar thropathy. Mild RIGHT and no significant LEFT foraminal narrowing. L2-L3: Slight retrolisthesis. Mild annular bulging. Mild facet arthropathy. Small bilateral foraminal protrusions with mild LEFT greater than RIGHT foraminal narrowing. L3-L4: Mild annular bulging. Slight narrowing of the subarticular recess bilaterally. Moderate facet arthropathy. Small bilateral foraminal protrusions with mild bilateral foraminal narrowing. L4-L5: Mild annular bulging in combination with facet arthropathy and ligamentum flavum hypertrophy r esults in mild central canal stenosis. Narrowing of the subarticular recess bilaterally. Mild bilater al foraminal narrowing. L5-S1: Mild annular bulging. Slight impingement traversing S1 nerve roots LEFT greater than RIGHT. Mi ld central canal stenosis. Advanced facet arthropathy. Moderate LEFT and mild RIGHT bony foraminal na rrowing. Small bilateral renal cysts. Visualized pelvic bony structures: Normal. Paravertebral soft tissues: Normal. IMPRESSION: 1. Mild lumbar curve. No acute compression. 2. Mild central canal stenosis L4-5 due to disc bulging in combination with facet arthropathy and li gamentum flavum hypertrophy. Mild LEFT greater than RIGHT foraminal narrowing at this level. 3. Disc bulging eccentric to the LEFT L5-S1 impinges the traversing LEFT S1 nerve root in the subart icular recess. Moderate LEFT L5-S1 foraminal narrowing. 4. Otherwise mild foraminal narrowing described above. 5. No other acute findings.
[2023-10-30] MEDS: gadobenate dimeglumine 20 mL vial IV (13:56)
== END 2023-10-30 12:36 | disposition home or self-care (01) ==
LOC: RAD 12:35
PROVIDERS: PCP Family Medicine; Visit Provider Family Medicine
DX: R27.0 Ataxia, unspecified (principal); M54.16 Radiculopathy, lumbar region; M48.061 Spinal stenosis, lumbar region without neurogenic claudication; M48.07 Spinal stenosis, lumbosacral region
CPT/HCPCS: 70553; 72148; A9577

== ENCOUNTER 2023-11-25 06:00 | Outpatient (RCR) | payer OTHER, SELFPAY | END 2023-12-06 23:59 | disposition home or self-care (01) | LOC: GPT 06:00 | PROVIDERS: Visit Provider Family Medicine | DX: R54 Age-related physical debility (principal) | CPT/HCPCS: 97110; 97162 ==

== ENCOUNTER 2023-12-12 11:42 | Emergency (ER) | payer OTHER, SELFPAY ==
[2023-12-12 11:58] VITALS: BP 143/90; PULSE 61; RESP 16; TEMP 36.7; O2SAT 96
--- NOTE | 2023-12-12 12:03 | XRR_ITS ---
PROCEDURE INFORMATION: Exam: XR Right Hand Exam date and time: 12/12/2023 12:09 PM Age: 78 years old Clinical indication: Injury or trauma; Fall; Blunt trauma (contusions or hematomas); Hand; Right TECHNIQUE: Imaging protocol: Radiologic exam of the right hand. Views: 3 or more views. COMPARISON: No relevant prior studies available. FINDINGS: Bones/joints: Dorsal dislocation of the middle phalanx ring finger at the proximal interphalangeal joint. Moderate osteoarthritis throughout the hand and wrist. Soft tissues: Soft tissue edema of the ring finger. XR/XR hand RT min 3V* [id number] IMPRESSION: 1. Dorsal dislocation of the middle phalanx ring finger at the proximal interphalangeal joint.
--- NOTE | 2023-12-12 12:14 | XRR_ITS ---
PROCEDURE INFORMATION: Exam: XR Right Hand Exam date and time: 12/12/2023 12:14 PM Age: 78 years old Clinical indication: Injury or trauma; Fall; Blunt trauma (contusions or hematomas); Hand; Right; Additional info: Post reduction TECHNIQUE: Imaging protocol: Radiologic exam of the right hand. Views: 1 or 2 views. COMPARISON: CR XR hand RT min 3V* [id number] 12/12/2023 12:09 PM FINDINGS: Bones/joints: No evidence of fracture or subluxation. 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 Radiocarpal articulation and carpal rows are grossly intact. Positive ulnar variance. No evidence of acute osseous erosion. Soft tissues: Grossly unremarkable. XR/XR hand RT 2V [id number] IMPRESSION: 1. No evidence of acute fracture or subluxation.
--- NOTE | 2023-12-12 12:59 | ED_ITS ---
HPI - Extremity Problem General: Chief complaint: Extremity Injury, Upper Stated complaint: fall, back pains Time Seen by Provider: 12/12/23 12:02 Source: patient Mode of arrival: ambulatory Limitations: no limitations History of Present Illness: 78-year-old male states that he had had a ground-level fall and landed on his right hand he had injured his right index finger he has pain in that right index finger he appears to have a finger dislocation he denies any other injuries denies hitting his head denies a headache. Associated symptoms: Deny chest pain, fever(s) or rash Review of Systems Const: Denies: fever(s), chills, body aches or change in appetite ENMT: Denies: throat pain or dental pain Card: Denies: chest pain Resp: Denies: dyspnea GI: Denies: abdominal pain, nausea, vomiting or diarrhea Musc: Reports: extremity pain; Denies: neck pain or back pain Skin/Breast: Denies: rash Neuro: Denies: headache(s) PFSH ED PFSH: Medical History BPH (benign prostatic hyperplasia) GERD (gastroesophageal reflux disease) Moderate major depression Kidney disease Dementia Hypertension Surgical History History of appendectomy No pertinent past surgical history Family History Other Dementia Diabetes Social History Smoking and tobacco/nicotine status: current every day tobacco/nicotine user cigarettes Packs smoked per day: 1 Quit status (tobacco/nicotine): not considering quitting Alcohol intake: never Substance/Drug Use: never Physical Exam Const: COMMON NORMALS: no acute distress, patient oriented x3 and healthy appearing HENMT: COMMON NORMALS: normocephalic and atraumatic HEAD & SCALP: normocephalic and atraumatic Neck/C-Spine: COMMON NORMALS: full ROM and supple Chest: COMMONS NORMALS: normal inspection of the chest Resp: COMMON NORMALS: normal respiratory effort Cardio: COMMON NORMALS: regular rate, regular rhythm and No murmurs present (Cardio) RATE: regular rate RHYTHM: regular rhythm Extremity: COMMON NORMALS: full ROM NARRATIVE EXTREMITY EXAM: Obvious deformity to the right ring finger Neuro: COMMON NORMALS: patient oriented x3, moves all extremities and no focal motor deficits Psych: COMMON NORMALS: mental status grossly normal, Normal thought process present and cooperative THOUGHT PROCESS: Normal thought process present Skin: COMMON NORMALS: no rashes or lesions noted and no wounds GENERAL SKIN EXAM: no rashes or lesions noted Procedures Orthopedic Joint Reduction Joint #1: Time Out Performed: Yes Side: right Joint Reduction Location: finger Technique used: traction/counter-traction Post-reduction neuro exam: intact Post-reduction vascular: intact Post Reduction X-Ray Obtained: Yes Post Reduction X-Ray Results: reduced Splint Applied: Yes Course Vital Signs: Vital signs: Vital Signs Temperature 98.0 F 12/12/23 11:58 Pulse Rate 61 12/12/23 11:58 Respiratory Rate 16 12/12/23 11:58 Blood Pressure 143/90 12/12/23 11:58 Pulse Oximetry 96 12/12/23 11:58 MDM - Extremity (Nontraumatic) Medical Decision Making Patient presents with finger dislocation did reduce his finger x-ray does show a possible slight avulsion fracture we will place him in a finger splint and have him follow-up with orthopedics he has no other injuries noted. Medical Records I reviewed the patient's medical records. All radiology interpretation(s) finalized by discharge Discharge Plan Discharge Patient Disposition: Home Clinical Impression: Dislocation closed, finger Qualifiers: Encounter type: initial encounter Qualified Code(s): S63.259A - Unspecified dislocation of unspecified finger, initial encounter Condition: Stable Prescriptions: No Action (DME) DME: Walker Unit See Rx Instructions .Route Qty: 1 0RF Rx Instructions: Please dispense one rolator walker with seat. amlodipine 10 mg tablet 10 mg PO DAILY Qty: 30 0RF lisinopril 10 mg tablet 10 mg PO DAILY Qty: 30 0RF Discharge Orders: Discharge ED (Routine); Ordered 12/12/23 Ordered By: Dulce Braun Referrals: Renata Harvey MD [Primary Care Provider] - Ford Moreau DO [Physician] - 1-3 days Discharge Diet: Advance as tolerated Discharge Activity: Resume usual activity Patient Instructions: Closed Reduction (ED) Coding Level of Care Code ED [facility] for [facility] Randy
[2023-12-12 13:09] VITALS: BP 139/91; PULSE 59; RESP 16; TEMP 36.7; O2SAT 97
--- NOTE | 2023-12-12 15:54 | DCPLANNER ---
er f/u message sent to ortho
== END 2023-12-12 13:08 | disposition home or self-care (01) ==
PROVIDERS: Emergency Provider Emergency Medicine; PCP Family Medicine
DX: S63.254A Unspecified dislocation of right ring finger, initial encounter (principal); W18.39XA Other fall on same level, initial encounter; F03.90 Unspecified dementia, unspecified severity, without behavioral disturbance, psychotic disturbance, mood disturbance, and anxiety; I10 Essential (primary) hypertension; F17.210 Nicotine dependence, cigarettes, uncomplicated
CPT/HCPCS: 26770; 73120; 73130; 99283

== ENCOUNTER 2024-03-30 13:37 | Emergency (ER) | payer OTHER, SELFPAY ==
[2024-03-30 13:51] VITALS: BP 200/120; PULSE 69; RESP 15; TEMP 36.6; O2SAT 99; BMI 24.6
--- NOTE | 2024-03-30 14:01 | CTR_ITS ---
PROCEDURE INFORMATION: Exam: CT Head Without Contrast Exam date and time: 03/30/2024 2:08 PM Age: 78 years old Clinical indication: Altered mental status/memory loss; Additional info: AMS, dementia, significantly elevated BP TECHNIQUE: Imaging protocol: Computed tomography of the head without contrast. Radiation optimization: All CT scans at this facility use at least one of these dose optimization techniques: automated exposure control; mA and/or kV adjustment per patient size (includes targeted exams where dose is matched to clinical indication); or iterative reconstruction. COMPARISON: MR head wo/w con [id number] 10/30/2023 1:25 PM RADIATION DOSE METRICS: Total DLP (mGy-cm): 1133 FINDINGS: Brain: No hemorrhage. No edema. Moderate diffuse cerebral atrophy and sequela of chronic small vessel ischemic disease. No mass effect. Cerebral ventricles: No ventriculomegaly. Paranasal sinuses: Visualized sinuses are unremarkable. No fluid levels. Mastoid air cells: Visualized mastoid air cells are well aerated. Bones: Unremarkable. No acute fracture. Soft tissues: Unremarkable. CT/CT head wo con* [id number] IMPRESSION: No acute intracranial abnormality.
--- NOTE | 2024-03-30 14:02 | XRR_ITS ---
PROCEDURE INFORMATION: Exam: XR Chest Exam date and time: 03/30/2024 2:12 PM Age: 78 years old Clinical indication: Other: AMS TECHNIQUE: Imaging protocol: Radiologic exam of the chest. Views: 1 view. COMPARISON: CR XR chest 1V portable [id number] 12/29/2022 5:52 PM FINDINGS: Lungs: Unremarkable. No consolidation. Pleural spaces: Unremarkable. No pleural effusion. No pneumothorax. Heart/Mediastinum: Unremarkable. No cardiomegaly. Bones/joints: Visualized osseous structures are intact. XR/XR chest 1V portable [id number] IMPRESSION: No acute findings.
--- NOTE | 2024-03-30 14:16 | W.ED.AMS ---
Documented by User: Franky Renee DO 03/31/24 08:11 HPI - Altered Mental Status General: Chief Complaint: Altered Mental Status Stated Complaint: NV Time Seen by Provider: 03/30/24 14:04 History of Present Illness: 78-year-old male presents emergency room ambulatory. He was on the way to see Dr. Deleon, vomited. Has had progressive neurologic decline and some dementia. His EF is only probably a without LOC. Today the end up being late for the appointment. There is no hematemesis or coffee-ground emesis he has not had any vomiting since he is actually asking to eat now. He denies abdominal pain chest pain or shortness of breath no fever sweats or chills. also reports he has been having progressively diminishing ability to ambulate manages ADLs recently. Patient presents to the ER with decreased mobility and increased confusion. Patient appointment for neurologist today and was there checking in when he got sick to her stomach and vomited. They wanted him to come over here to be checked out. Patient does have history of vascular dementia, states he has not been feeling ill otherwise answers most questions. States quite during this time. Patient is hypertensive drips nonlabored respirations. said he has been aspirating more on thin liquids and having increased mobility issues with gait disturbances and several falls. Related Data Previous Rx's Medication Instructions Recorded lisinopril 10 mg tablet 10 mg PO DAILY #30 tabs 09/25/21 amlodipine 10 mg tablet 10 mg PO DAILY #30 tabs 12/29/22 DME: Walker #1 ea 08/13/23 Allergies Allergy/AdvReac Type Severity Reaction Status Date / Time ibuprofen [From Motrin] Allergy ALGY-Rash Verified 05/14/23 13:53 tetanus and diphtheria Allergy ALGY-Anaphy Verified 05/14/23 13:53 toxoids laxis Review of Systems Const: Denies: fever(s) or chills Card: Denies: chest pain Resp: Denies: dyspnea GI: Denies: abdominal pain : Denies: dysuria, urinary frequency or urinary urgency Musc: Denies: neck pain or back pain Skin/Breast: Denies: rash PFSH ED PFSH: Medical History BPH (benign prostatic hyperplasia) GERD (gastroesophageal reflux disease) Moderate major depression Kidney disease Dementia Hypertension Surgical History History of appendectomy No pertinent past surgical history Family History Other Dementia Diabetes Social History Smoking and tobacco/nicotine status: current every day tobacco/nicotine user cigarettes Packs smoked per day: 1 Quit status (tobacco/nicotine): not considering quitting Alcohol intake: never Substance/Drug Use: never Physical Exam Const: COMMON NORMALS: no acute distress GENERAL APPEARANCE: cooperative and comfortable ORIENTATION/CONSCIOUSNESS: Yes awake, Yes oriented to person, Yes oriented to place and Yes oriented to time HENMT: COMMON NORMALS: normocephalic, atraumatic and hearing grossly normal bilaterally HEAD & SCALP: normocephalic and atraumatic Resp: COMMON NORMALS: normal respiratory effort, No retractions, No use of accessory muscles and clear to auscultation bilaterally AUSCULTATION: clear to auscultation bilaterally Cardio: COMMON NORMALS: regular rate, regular rhythm and No murmurs present (Cardio) RATE: regular rate RHYTHM: regular rhythm GI: COMMON NORMALS: Soft to palpation and No hepatosplenomegaly present AUSCULTATION: Yes normoactive bowel sounds PALPATION: Yes Soft to palpation, No Tenderness to palpation present (GI), No Guarding due to palpation present (GI) and Yes No hepatosplenomegaly present Extremity: COMMON NORMALS: normal to inspection, capillary refill normal, no clubbing, cyanosis or edema, no calf tenderness and no pedal edema Neuro: SENSORIUM/ORIENTATION: Yes oriented to person, Yes oriented to place and Yes oriented to time Skin: COMMON NORMALS: no rashes or lesions noted GENERAL SKIN EXAM: no rashes or lesions noted Course Vital Signs: Vital signs: Vital Signs Temperature 97.9 F 03/30/24 13:51 Pulse Rate 87 03/30/24 19:20 Respiratory Rate 15 03/30/24 13:51 Blood Pressure 168/120 03/30/24 19:20 Pulse Oximetry 97 03/30/24 19:20 Oxygen Delivery Me thod Room Air 03/30/24 17:51 MDM - Altered Mental Status Medical Decision Making Care signed out to Dr. Simms at change of shift. See final notes for diagnosis and disposition. Patient's care was transferred to myself at shift change, lab work was reviewed as well as head CT chest x-ray and abdomen pelvis CT scan, all of which was fairly normal. These results was discussed with the . is wanting to take the patient home. We did talk about long-term care and assisted living. [facility] Lab Data 03/30/24 15:01 03/30/24 15:[address] 03/30/24 14:01 IMPRESSION: No acute intracranial abnormality. Chest X-Ray 03/30/24 14:02 IMPRESSION: No acute findings. Abdomen/Pelvis CT 03/30/24 14:47 IMPRESSION: 1. No acute findings. Large colonic stool burden. 2. [id number] chronic appearing compression deformity of the superior endplate of L1. Laboratory Results WBC 10.56 10^3/uL (3.29-11.43) 03/30/24 15:01 RBC 5.18 10^6/uL (3.85-5.65) 03/30/24 15:01 Hgb 14.50 g/dL (11.27-16.99) 03/30/24 15:01 Hct 45.6 % (37-53) 03/30/24 15:01 MCV 88.0 fl (82-101) 03/30/24 15:01 MCH 28.0 pg (27-33) 03/30/24 15:01 MCHC 31.8 g/dL (30-55) 03/30/24 15:01 RDW 13.1 % (12.1-15.1) 03/30/24 15:01 Plt Count 269 10^3/cmm (157-399) 03/30/24 15:01 MPV 9.9 fL (7.4-10.4) 03/30/24 15:01 Neut % (Auto) 86.3 % 03/30/24 15:01 Lymph % (Auto) 7.5 % 03/30/24 15:01 [place] % (Auto) 5.2 % 03/30/24 15:01 Eos % (Auto) 0.3 % 03/30/24 15:01 Baso % (Auto) 0.2 % 03/30/24 15:01 Neut # (Auto) 9.12 10^3/uL (1.8-7.7) H 03/30/24 15:01 Lymph # (Auto) 0.8 10^3/uL (0.8-4.8) 03/30/24 15:01 [place] # (Auto) 0.6 10^3/uL (0.2-0.9) 03/30/24 15:01 Eos # (Auto) 0.0 10^3/uL (0.0-0.8) 03/30/24 15:01 Baso # (Auto) 0.0 10^3/uL (0.0-0.1) 03/30/24 15:01 Nucleated RBC % (auto) 0 % 03/30/24 15:01 Nucleated RBCs # 0.0 /100WBC 03/30/24 15:01 Sodium 141 mmol/L (136-145) 03/30/24 15:01 Potassium 3.9 mmol/L (3.5-5.1) 03/30/24 15:01 Chloride 102 mmol/L (98-107) 03/30/24 15:01 Carbon Dioxide 24 mmol/L (22-29) 03/30/24 15:01 Anion Gap 18.9 (5-19) 03/30/24 15:01 BUN 35 mg/dL (8-23) H 03/30/24 15:01 Creatinine 2.4 mg/dL (0.7-1.2) H 03/30/24 15:01 GFR Calculation Not Reportable 03/30/24 15:01 Glucose 112 mg/dL (65-115) 03/30/24 15:01 Calculated Osmolality 301 mOsm/kg (285-295) H 03/30/24 15:01 Calcium 9.6 mg/dL (8.5-10.5) 03/30/24 15:01 Total Bilirubin 0.7 mg/dL (0.15-1.2) 03/30/24 15:01 AST 20 U/L (0-40) 03/30/24 15:01 ALT 11 U/L (0-41) 03/30/24 15:01 Alkaline Phosphatase 171 U/L (40-130) H 03/30/24 15:01 Creatine Kinase 167 U/L (39-308) 03/30/24 15:01 Total Protein 8.1 g/dL (6.6-8.7) 03/30/24 15:01 Albumin 4.3 g/dL (3.5-5.2) 03/30/24 15:01 Globulin 3.8 g/dL (1.3-4.6) 03/30/24 15:01 Lipase 28 U/L (13-60) 03/30/24 15:01 Urine Color Yellow (Yellow) 03/30/24 16:33 Urine Appearance Clear (CLEAR) 03/30/24 16:33 Urine pH 5.5 (5-7) 03/30/24 16:33 Ur Specific [place] 1.015 (1.005-1.030) 03/30/24 16:33 Urine Protein 2+ (Negative) A 03/30/24 16:33 Urine Glucose (UA) Negative (Normal) 03/30/24 16:33 Urine Ketones Negative (Negative) 03/30/24 16:33 Urine Blood Negative (Negative) 03/30/24 16:33 Urine Nitrate Negative (Negative) 03/30/24 16:33 Urine Bilirubin Negative (Negative) 03/30/24 16:33 Urine Urobilinogen 1.0 mg/dL (Negative) 03/30/24 16:33 Ur Leukocyte Esterase Negative (Negative) 03/30/24 16:33 Urine RBC 0-2 /hpf (0-2) 03/30/24 16:33 Urine WBC 0-5 /hpf (0-5) 03/30/24 16:33 Ur Squamous Epith Cells 0-5 /hpf (0-5) 03/30/24 16:33 Amorphous Sediment Not Reportable 03/30/24 16:33 Urine Bacteria None seen /hpf (NONE) 03/30/24 16:33 Hyaline Casts 2.05 /lpf 03/30/24 16:33 Discharge Plan Discharge Patient Disposition: Home Clinical Impression: Chronic kidney disease Qualifiers: Chronic kidney disease stage: unspecified stage Qualified Code(s): N18.9 - Chronic kidney disease, unspecified Hypertension Qualifiers: Hypertension type: unspecified Qualified Code(s): I10 - Essential (primary) hypertension Condition: Stable Prescriptions: No Action (DME) DME: Walker Unit See Rx Instructions .Route Qty: 1 0RF Rx Instructions: Please dispense one rolator walker with seat. amlodipine 10 mg tablet 10 mg PO DAILY Qty: 30 0RF lisinopril 10 mg tablet 10 mg PO DAILY Qty: 30 0RF Discharge Orders: Discharge ED (Routine); Ordered 03/30/24 Ordered By: Pee Simms Referrals: Renata Harvey MD [Primary Care Provider] - 1 week Patient Instructions: Hypertension, Chronic Kidney Disease (ED), Altered Mental Status (ED) Activity Restrictions/Additional Instructions: Your evaluation in the ER today was essentially unremarkable. You have very high blood pressure. You are given additional medicine today to help bring it down. Please keep a blood pressure log and take it with you with your next family practice appointment. Please follow-up with the neck 7 days for further evaluation and treatment. Thank you for choosing [facility] for your healthcare needs today. Please realize that you were seen in the emergency department and that we are providing you with an emergency medical screening exam and this may not be a complete and all exclusive of all testing and/or medical workup we may need to determine your element or severity of your illness. It is very important that you follow-up as instructed with your primary care provider or specialist for the additional evaluation and to discuss your medical treatment plan. You may return to the emergency department should you have concerns or if your condition changes or worsens in any way. Coding Level of Care Code ED Professor Of Communication for Chg Fwd Documented by User: Pee Simms DO 03/30/24 18:43 HPI - Altered Mental Status General: Chief Complaint: Altered Mental Status Stated Complaint: NV Time Seen by Provider: 03/30/24 14:04 History of Present Illness: Patient presents to the ER with decreased mobility and increased confusion. Patient appointment for neurologist today and was there checking in when he got sick to her stomach and vomited. They wanted him to come over here to be checked out. Patient does have history of vascular dementia, states he has not been feeling ill otherwise answers most questions. States quite during this time. Patient is hypertensive ips nonlabored respirations. said he has been aspirating more on thin liquids and having increased mobility issues with gait disturbances and several falls. Related Data Previous Rx's Medication Instructions Recorded lisinopril 10 mg tablet 10 mg PO DAILY #30 tabs 09/25/21 amlodipine 10 mg tablet 10 mg PO DAILY #30 tabs 12/29/22 DME: Walker #1 ea 08/13/23 Allergies Allergy/AdvReac Type Severity Reaction Status Date / Time ibuprofen [From Motrin] Allergy ALGY-Rash Verified 05/14/23 13:53 tetanus and diphtheria Allergy ALGY-Anaphy Verified 05/14/23 13:53 toxoids laxis PFSH ED PFSH: Medical History BPH (benign prostatic hyperplasia) GERD (gastroesophageal reflux disease) Moderate major depression Kidney disease Dementia Hypertension Surgical History History of appendectomy No pertinent past surgical history Family History Other Dementia Diabetes Social History Smoking and tobacco/nicotine status: current every day tobacco/nicotine user cigarettes Packs smoked per day: 1 Quit status (tobacco/nicotine): not considering quitting Alcohol intake: never Substance/Drug Use: never Course Vital Signs: Vital signs: Vital Signs Temperature 97.9 F 03/30/24 13:51 Pulse Rate 87 03/30/24 19:20 Respiratory Rate 15 03/30/24 13:51 Blood Pressure 168/120 03/30/24 19:20 Pulse Oximetry 97 03/30/24 19:20 Oxygen Delivery Me thod Room Air 03/30/24 17:51 MDM - Altered Mental Status Medical Decision Making Patient's care was transferred to myself at shift change, lab work was reviewed as well as head CT chest x-ray and abdomen pelvis CT scan, all of which was fairly normal. These results was discussed with the . is wanting to take the patient home. We did talk about long-term care and assisted living. She [facility]. Differential Diagnosis Likely altered mental status Medical Records I reviewed the patient's medical records. Lab Data I reviewed the patient's lab results. 03/30/24 15:01 03/30/24 15:[address] 03/30/24 14:01 IMPRESSION: No acute intracranial abnormality. Chest X-Ray 03/30/24 14:02 IMPRESSION: No acute findings. Abdomen/Pelvis CT 03/30/24 14:47 IMPRESSION: 1. No acute findings. Large colonic stool burden. 2. Qgzh-jf-ntruidlh chronic appearing compression deformity of the superior endplate of L1. Laboratory Results WBC 10.56 10^3/uL (3.29-11.43) 03/30/24 15:01 RBC 5.18 10^6/uL (3.85-5.65) 03/30/24 15:01 Hgb 14.50 g/dL (11.27-16.99) 03/30/24 15:01 Hct 45.6 % (37-53) 03/30/24 15:01 MCV 88.0 fl (82-101) 03/30/24 15:01 MCH 28.0 pg (27-33) 03/30/24 15:01 MCHC 31.8 g/dL (30-55) 03/30/24 15:01 RDW 13.1 % (12.1-15.1) 03/30/24 15:01 Plt Count 269 10^3/cmm (157-399) 03/30/24 15:01 MPV 9.9 fL (7.4-10.4) 03/30/24 15:01 Neut % (Auto) 86.3 % 03/30/24 15:01 Lymph % (Auto) 7.5 % 03/30/24 15:01 [place]berry % (Auto) 5.2 % 03/30/24 15:01 Eos % (Auto) 0.3 % 03/30/24 15:01 Baso % (Auto) 0.2 % 03/30/24 15:01 Neut # (Auto) 9.12 10^3/uL (1.8-7.7) H 03/30/24 15:01 Lymph # (Auto) 0.8 10^3/uL (0.8-4.8) 03/30/24 15:01 [place] # (Auto) 0.6 10^3/uL (0.2-0.9) 03/30/24 15:01 Eos # (Auto) 0.0 10^3/uL (0.0-0.8) 03/30/24 15:01 Baso # (Auto) 0.0 10^3/uL (0.0-0.1) 03/30/24 15:01 Nucleated RBC % (auto) 0 % 03/30/24 15:01 Nucleated RBCs # 0.0 /100WBC 03/30/24 15:01 Sodium 141 mmol/L (136-145) 03/30/24 15:01 Potassium 3.9 mmol/L (3.5-5.1) 03/30/24 15:01 Chloride 102 mmol/L (98-107) 03/30/24 15:01 Carbon Dioxide 24 mmol/L (22-29) 03/30/24 15:01 Anion Gap 18.9 (5-19) 03/30/24 15:01 BUN 35 mg/dL (8-23) H 03/30/24 15:01 Creatinine 2.4 mg/dL (0.7-1.2) H 03/30/24 15:01 GFR Calculation Not Reportable 03/30/24 15:01 Glucose 112 mg/dL (65-115) 03/30/24 15:01 Calculated Osmolality 301 mOsm/kg (285-295) H 03/30/24 15:01 Calcium 9.6 mg/dL (8.5-10.5) 03/30/24 15:01 Total Bilirubin 0.7 mg/dL (0.15-1.2) 03/30/24 15:01 AST 20 U/L (0-40) 03/30/24 15:01 ALT 11 U/L (0-41) 03/30/24 15:01 Alkaline Phosphatase 171 U/L (40-130) H 03/30/24 15:01 Creatine Kinase 167 U/L (39-308) 03/30/24 15:01 Total Protein 8.1 g/dL (6.6-8.7) 03/30/24 15:01 Albumin 4.3 g/dL (3.5-5.2) 03/30/24 15:01 Globulin 3.8 g/dL (1.3-4.6) 03/30/24 15:01 Lipase 28 U/L (13-60) 03/30/24 15:01 Urine Color Yellow (Yellow) 03/30/24 16:33 Urine Appearance Clear (CLEAR) 03/30/24 16:33 Urine pH 5.5 (5-7) 03/30/24 16:33 Ur Specific [place] 1.015 (1.005-1.030) 03/30/24 16:33 Urine Protein 2+ (Negative) A 03/30/24 16:33 Urine Glucose (UA) Negative (Normal) 03/30/24 16:33 Urine Ketones Negative (Negative) 03/30/24 16:33 Urine Blood Negative (Negative) 03/30/24 16:33 Urine Nitrate Negative (Negative) 03/30/24 16:33 Urine Bilirubin Negative (Negative) 03/30/24 16:33 Urine Urobilinogen 1.0 mg/dL (Negative) 03/30/24 16:33 Ur Leukocyte Esterase Negative (Negative) 03/30/24 16:33 Urine RBC 0-2 /hpf (0-2) 03/30/24 16:33 Urine WBC 0-5 /hpf (0-5) 03/30/24 16:33 Ur Squamous Epith Cells 0-5 /hpf (0-5) 03/30/24 16:33 Amorphous Sediment Not Reportable 03/30/24 16:33 Urine Bacteria None seen /hpf (NONE) 03/30/24 16:33 Hyaline Casts 2.05 /lpf 03/30/24 16:33 All radiology interpretation(s) finalized by discharge Discharge Plan Discharge Patient Disposition: Home Clinical Impression: Chronic kidney disease Qualifiers: Chronic kidney disease stage: unspecified stage Qualified Code(s): N18.9 - Chronic kidney disease, unspecified Hypertension Qualifiers: Hypertension type: unspecified Qualified Code(s): I10 - Essential (primary) hypertension Condition: Stable Prescriptions: No Action (DME) DME: Walker Unit See Rx Instructions .Route Qty: 1 0RF Rx Instructions: Please dispense one rolator walker with seat. amlodipine 10 mg tablet 10 mg PO DAILY Qty: 30 0RF lisinopril 10 mg tablet 10 mg PO DAILY Qty: 30 0RF Discharge Orders: Discharge ED (Routine); Ordered 03/30/24 Ordered By: Pee Simms Referrals: Renata Harvey MD [Primary Care Provider] - 1 week Patient Instructions: Hypertension, Chronic Kidney Disease (ED), Altered Mental Status (ED) Activity Restrictions/Additional Instructions: Your evaluation in the ER today was essentially unremarkable. You have very high blood pressure. You are given additional medicine today to help bring it down. Please keep a blood pressure log and take it with you with your next family practice appointment. Please follow-up with the neck 7 days for further evaluation and treatment. Thank you for choosing [facility] for your healthcare needs today. Please realize that you were seen in the emergency department and that we are providing you with an emergency medical screening exam and this may not be a complete and all exclusive of all testing and/or medical workup we may need to determine your element or severity of your illness. It is very important that you follow-up as instructed with your primary care provider or specialist for the additional evaluation and to discuss your medical treatment plan. You may return to the emergency department should you have concerns or if your condition changes or worsens in any way. Coding Level of Care Code ED Professor Of Communication for Radha Padilla
--- NOTE | 2024-03-30 14:47 | CTR_ITS ---
PROCEDURE INFORMATION: Exam: CT Abdomen And Pelvis Without Contrast Exam date and time: 03/30/2024 3:04 PM Age: 78 years old Clinical indication: Nausea and vomiting; Abdominal pain TECHNIQUE: Imaging protocol: Computed tomography of the abdomen and pelvis without contrast. Radiation optimization: All CT scans at this facility use at least one of these dose optimization techniques: automated exposure control; mA and/or kV adjustment per patient size (includes targeted exams where dose is matched to clinical indication); or iterative reconstruction. COMPARISON: CR XR hip LT 2-3V wo/w pel* [id number] 09/24/2021 11:11 PM RADIATION DOSE METRICS: Total DLP (mGy-cm): 504 FINDINGS: Liver: Normal. No mass. Gallbladder and biliary ducts: Normal. No calcified stones. No ductal dilation. Pancreas: Normal. No ductal dilation. Spleen: Normal. No splenomegaly. Adrenal glands: Normal. No mass. Kidneys and ureters: Normal. No hydronephrosis. Stomach and bowel: Large colonic stool burden. No obstruction. No mucosal thickening. Appendix: No evidence of appendicitis. Intraperitoneal space: Unremarkable. No free air. No significant fluid collection. Vasculature: Unremarkable. No abdominal aortic aneurysm. Lymph nodes: Unremarkable. No enlarged lymph nodes. Urinary bladder: Unremarkable as visualized. Reproductive: Unremarkable as visualized. Bones/joints: No acute fracture. Generalized osseous demineralization. Chronic appearing ewhj-qv-ivuguqcl compression deformity of the superior endplate of L1. Soft tissues: Unremarkable. CT/CT abdomen pelvis wo con [id number] IMPRESSION: 1. No acute findings. Large colonic stool burden. 2. Jtvp-zw-ahdfldnh chronic appearing compression deformity of the superior endplate of L1.
[2024-03-30 14:55] VITALS: BP 218/135; PULSE 74; O2SAT 100
--- NOTE | 2024-03-30 15:03 | ECG_ITS ---
[facility] Test Date: 2024-03-30 Pat Name: Nadir Bar Department: Room: Gender: Male Community Relations Officer: : 1945 Requested By: Franky Quiroga Order Number: [id number] Kirill MD: Jovani Lyon M.D. Measurements Intervals [place] Rate: 76 P: 71 FL: 142 QRS: 21 QRSD: 144 T: 3 QT: 417 QTc: 471 Interpretive Statements SINUS RHYTHM RIGHT BUNDLE BRANCH BLOCK [120+ ms QRS DURATION, UPRIGHT V1, 40+ ms S IN I/aVL/V4/V5/V6] Compared to ECG 12/29/2022 17:22:07 Sinus bradycardia no longer present Electronically Signed On 03-30-2024 23:25:28 CDT by Jovani Lyon M.D. [id number]
[2024-03-30 15:13] LABS: Basophils % 0.2 %; Eosinophils % 0.3 %; Hematocrit 45.6 % (37-53); Lymphocytes # 0.8 10^3/uL (0.8-4.8); Lymphocytes % 7.5 %; Mean Corpuscular HGB Conc 31.8 g/dL (30-55); Mean Platelet Volume 9.9 fL (7.4-10.4); Monocytes # 0.6 10^3/uL (0.2-0.9); Monocytes % 5.2 %; Neutrophils # 9.12 10^3/uL (1.8-7.7); Neutrophils % 86.3 %; Nucleated Red Blood Cells % 0 %; Platelet Count 269 10^3/cmm (157-399); Red Blood Count 5.18 10^6/uL (3.85-5.65); Red Cell Distribution Width 13.1 % (12.1-15.1); White Blood Count 10.56 10^3/uL (3.29-11.43)
[2024-03-30 15:35] LABS: Alanine Aminotransferase 11 U/L (0-41); Albumin Level 4.3 g/dL (3.5-5.2); Alkaline Phosphatase 171 U/L (40-130); Anion Gap 18.9 (5-19); Aspartate Amino Transferase 20 U/L (0-40); Blood Urea Nitrogen 35 mg/dL (8-23); Calcium 9.6 mg/dL (8.5-10.5); Carbon Dioxide 24 mmol/L (22-29); Chloride 102 mmol/L (98-107); Creatine Phosphokinase 167 U/L (39-308); Creatinine Clr Calc Pharmacy 26.0862; Globulin 3.8 g/dL (1.3-4.6); Glucose 112 mg/dL (65-115); Lipase 28 U/L (13-60); Osmolality Calculated 301 mOsm/kg (285-295); Potassium 3.9 mmol/L (3.5-5.1); Sodium 141 mmol/L (136-145); Total Bilirubin 0.7 mg/dL (0.15-1.2); Total Protein 8.1 g/dL (6.6-8.7)
[2024-03-30 16:19] VITALS: BP 196/143; PULSE 69; O2SAT 92
[2024-03-30] MEDS: hyDRALAzine 20 mg/mL INJ 1 mL 10 MG IVP (17:25)
[2024-03-30 17:46] LABS: Bilirubin Urine Negative (Negative); Blood Urine Negative (Negative); Glucose Urine UA Negative (Normal); Ketones Urine Negative (Negative); Leukocyte Esterase Urine Negative (Negative); Nitrate Urine Negative (Negative); Protein Urine 2+ (Negative); Specific Gravity, Urine 1.015 (1.005-1.030); Urine Appearance Clear (CLEAR); Urine Color Yellow (Yellow); pH Urine 5.5 (5-7)
[2024-03-30] MEDS: lisinopril 10 mg Tablet PO (17:49)
[2024-03-30] MEDS: amlodipine 10 mg Tablet PO (17:49)
[2024-03-30 17:51] VITALS: BP 192/114; PULSE 91; O2SAT 96
[2024-03-30 17:51] LABS: Add Urine Microscopic? YES; Bacteria Urine None Seen /hpf; Hyaline Casts Urine 2.05 /lpf; RBC Urine 0-2 /hpf (0-2); Squamous Epithelial Cell Urine 0-5 /hpf (0-5); WBC Urine 0-5 /hpf (0-5)
[2024-03-30 18:11] LABS: UA Slide Review UA Slide Review Perf
[2024-03-30 19:20] VITALS: BP 168/120; PULSE 87; O2SAT 97
== END 2024-03-30 19:21 | disposition home or self-care (01) ==
PROVIDERS: Physician Assistant; Emergency Provider Family Medicine; PCP Family Medicine
DX: I12.9 Hypertensive chronic kidney disease with stage 1 through stage 4 chronic kidney disease, or unspecified chronic kidney disease (principal); N18.9 Chronic kidney disease, unspecified; F03.90 Unspecified dementia, unspecified severity, without behavioral disturbance, psychotic disturbance, mood disturbance, and anxiety; F17.210 Nicotine dependence, cigarettes, uncomplicated
CPT/HCPCS: 70450; 71045; 74176; 80053; 81001; 82550; 83690; 85025; 93005; 96374; 99285; J0360

== ENCOUNTER 2024-06-16 18:35 | Observation (INO) | payer OTHER, SELFPAY ==
[2024-06-16] VITALS (9 sets, daily range): BP systolic 163–187; BP diastolic 106–127; PULSE 55–69; RESP 16–18; TEMP 36.4; O2SAT 94–97; BMI 24.7
--- NOTE | 2024-06-16 18:39 | ECG_ITS ---
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 Measurements Intervals [place] Rate: 74 P: 61 DE: 135 QRS: 75 QRSD: 153 T: 3 QT: 448 QTc: 499 Interpretive Statements SINUS RHYTHM INDETERMINATE AXIS RIGHT BUNDLE BRANCH BLOCK [120+ ms QRS DURATION, UPRIGHT V1, 40+ ms S IN I/aVL/V4/V5/V6] Compared to ECG 03/30/2024 16:02:13 Indeterminate axis now present Electronically Signed On 06-17-2024 00:59:53 FARM MANAGEMENT AGENT by Jovani Lyon M.D. [id number] f
--- NOTE | 2024-06-16 18:42 | XRR_ITS ---
PROCEDURE INFORMATION: Exam: XR Chest Exam date and time: 06/16/2024 7:07 PM Age: 78 years old Clinical indication: Other: HTN; Additional info: Hypertension TECHNIQUE: Imaging protocol: Radiologic exam of the chest. Views: 1 view. COMPARISON: CR XR chest 1V portable [id number] 03/30/2024 2:12 PM FINDINGS: Lungs: Emphysematous changes. Pleural spaces: Unremarkable. No pleural effusion. No pneumothorax. Heart/Mediastinum: Cardiomegaly. Bones/joints: Unremarkable. XR/XR chest 1V portable [id number] IMPRESSION: 1. Negative for infiltrate 2. Emphysematous changes. 3. Cardiomegaly.
[2024-06-16] MEDS: cloNIDine 0.1 mg Tablet 0.2 MG PO (18:58)
--- NOTE | 2024-06-16 19:43 | ED_ITS ---
HPI - General Adult 2 General: Chief complaint: General Medical Stated complaint: High BP Time Seen by Provider: 06/16/24 18:42 History of Present Illness: Patient presents to the ER by EMS with complaints of hand swelling for the last 2 days. He had a virtual appointment with the [place] doctor today to try to get fpc placement. They recommend bring the patient in for evaluation because bilateral wrist swelling and high blood pressure. Patient's significant other says he is at his normal baseline, he does have about a 10 to 20-second delay when answering questions and is very quiet with simple responses. Patient says his wrist do not hurt but they are swollen. Upon arrival his blood pressure was 187/127, Related Data Previous Rx's Medication Instructions Recorded lisinopril 10 mg tablet 10 mg PO DAILY #30 tabs 09/25/21 amlodipine 10 mg tablet 10 mg PO DAILY #30 tabs 12/29/22 DME: Walker #1 ea 08/13/23 Allergies Allergy/AdvReac Type Severity Reaction Status Date / Time ibuprofen [From Motrin] Allergy ALGY-Rash Verified 05/14/23 13:53 tetanus and diphtheria Allergy ALGY-Anaphy Verified 05/14/23 13:53 toxoids laxis Review of Systems 2 General: Reports: 10 or more systems reviewed and unremarkable except in HPI and below PFSH ED 2 PFSH: Medical History BPH (benign prostatic hyperplasia) GERD (gastroesophageal reflux disease) Moderate major depression Kidney disease Dementia Hypertension Surgical History History of appendectomy No pertinent past surgical history Family History Other Dementia Diabetes Social History Smoking and tobacco/nicotine status: current every day tobacco/nicotine user cigarettes Packs smoked per day: 1 Quit status (tobacco/nicotine): not considering quitting Alcohol intake: never Substance/Drug Use: never Physical Exam 2 Const: COMMON NORMALS: no acute distress, average body habitus, patient oriented x3, no limitations, healthy appearing, alert and well nourished HENMT: COMMON NORMALS: normocephalic, atraumatic, hearing grossly normal bilaterally, external ears normal, Normal external nose present and moist oral mucous membranes HEAD & SCALP: normocephalic and atraumatic NOSE: Normal external nose present EXTERNAL EAR: Yes external ears normal Neck/C-Spine: COMMON NORMALS: no JVD Chest: COMMONS NORMALS: normal inspection of the chest and normal palpation of entire chest wall Resp: COMMON NORMALS: normal respiratory effort, No retractions, No use of accessory muscles and clear to auscultation bilaterally AUSCULTATION: clear to auscultation bilaterally Cardio: COMMON NORMALS: no JVD, regular rate, regular rhythm, S1 normal heart sound present, S2 normal heart sound present, No gallops present (Cardio), No clicks present (Cardio), No murmurs present (Cardio) and No rub (Cardio) R ATE: regular rate RHYTHM: regular rhythm HEART SOUNDS: S1 normal heart sound present and S2 normal heart sound present GI: COMMON NORMALS: Normal to inspection, nondistended, normoactive bowel sounds present, Soft to palpation, non-tender, No hepatosplenomegaly present and no masses PALPATION: Yes Soft to palpation and Yes No hepatosplenomegaly present Extremity: NARRATIVE EXTREMITY EXAM: Bilateral dorsal wrist swelling, no erythema or tenderness to palpation, 2+ bilateral lower extremity pitting edema, Neuro: COMMON NORMALS: patient oriented x3 SENSORIUM/ORIENTATION: Yes alert Course 2 Vital Signs: Vital signs: Vital Signs Temperature 97.6 F 06/16/24 18:39 Pulse Rate 69 06/16/24 19:11 Respiratory Rate 18 06/16/24 19:11 Blood Pressure 163/110 06/16/24 19:11 Pulse Oximetry 94 06/16/24 19:11 Oxygen Delivery Me thod Room Air 06/16/24 19:11 MDM - General Adult Medical Decision Making Upper chest x-ray essentially unremarkable, uric acid pending, patient was given 0.2 mg clonidine to lower his blood pressure this did transiently help. Patient blood pressure back up to 181/76. Did discuss this with the family with normal lab work and high blood pressure we may be able to get him in for observation that may or may not help with placing him in a fpc for the long run. I discussed this with Dr. Church who is agreeable to put him observation, treat his blood pressure, and let our social work talk with him in the morning. Medical Records I reviewed the patient's medical records. Lab Data I reviewed the patient's lab results. 06/16/24 20:00 06/16/24 20:00 Radiology Impressions Chest X-Ray 06/16/24 18:42 IMPRESSION: 1. Negative for infiltrate 2. Emphysematous changes. 3. Cardiomegaly. Laboratory Results WBC 8.48 10^3/uL (3.29-11.43) 06/16/24 20:00 RBC 4.30 10^6/uL (3.85-5.65) 06/16/24 20:00 Hgb 11.80 g/dL (11.27-16.99) 06/16/24 20:00 Hct 37.0 % (37-53) 06/16/24 20:00 MCV 86.0 fl (82-101) 06/16/24 20:00 MCH 27.4 pg (27-33) 06/16/24 20:00 MCHC 31.9 g/dL (30-55) 06/16/24 20:00 RDW 12.6 % (12.1-15.1) 06/16/24 20:00 Plt Count 294 10^3/cmm (157-399) 06/16/24 20:00 MPV 9.4 fL (7.4-10.4) 06/16/24 20:00 Neut % (Auto) 87.2 % 06/16/24 20:00 Lymph % (Auto) 5.5 % 06/16/24 20:00 [place] % (Auto) 5.9 % 06/16/24 20:00 Eos % (Auto) 0.7 % 06/16/24 20:00 Baso % (Auto) 0.2 % 06/16/24 20:00 Neut # (Auto) 7.39 10^3/uL (1.8-7.7) 06/16/24 20:00 Lymph # (Auto) 0.5 10^3/uL (0.8-4.8) L 06/16/24 20:00 [place] # (Auto) 0.5 10^3/uL (0.2-0.9) 06/16/24 20:00 Eos # (Auto) 0.1 10^3/uL (0.0-0.8) 06/16/24 20:00 Baso # (Auto) 0.0 10^3/uL (0.0-0.1) 06/16/24 20:00 Nucleated RBC % (auto) 0 % 06/16/24 20:00 Nucleated RBCs # 0.0 /100WBC 06/16/24 20:00 Sodium 136 mmol/L (136-145) 06/16/24 20:00 Potassium 3.7 mmol/L (3.5-5.1) 06/16/24 20:00 Chloride 102 mmol/L (98-107) 06/16/24 20:00 Carbon Dioxide 22 mmol/L (22-29) 06/16/24 20:00 Anion Gap 15.7 (5-19) 06/16/24 20:00 BUN 26 mg/dL (8-23) H 06/16/24 20:00 Creatinine 1.7 mg/dL (0.7-1.2) H 06/16/24 20:00 GFR Calculation Not Reportable 06/16/24 20:00 Glucose 108 mg/dL (65-115) 06/16/24 20:00 Calculated Osmolality 287 mOsm/kg (285-295) 06/16/24 20:00 Calcium 8.8 mg/dL (8.5-10.5) 06/16/24 20:00 Total Bilirubin 0.4 mg/dL (0.15-1.2) 06/16/24 20:00 AST 16 U/L (0-40) 06/16/24 20:00 ALT 13 U/L (0-41) 06/16/24 20:00 Alkaline Phosphatase 102 U/L (40-130) 06/16/24 20:00 NT-Pro-B Natriuret Pep 635 pg/mL (0-450) H 06/16/24 20:00 Total Protein 6.7 g/dL (6.6-8.7) 06/16/24 20:00 Albumin 3.1 g/dL (3.5-5.2) L 06/16/24 20:00 Globulin 3.6 g/dL (1.3-4.6) 06/16/24 20:00 All radiology interpretation(s) finalized by discharge Discharge Plan Discharge Patient Disposition: Placed in Observation Clinical Impression: Adult failure to thrive Hypertension Qualifiers: Hypertension type: resistant hypertension Qualified Code(s): I1A.0 - Resistant hypertension Coding Level of Care Code ED [employer] Installer for Radha Padilla
[2024-06-16 20:11] LABS: Basophils % 0.2 %; Eosinophils # 0.1 10^3/uL (0.0-0.8); Eosinophils % 0.7 %; Lymphocytes # 0.5 10^3/uL (0.8-4.8); Lymphocytes % 5.5 %; Mean Corpuscular HGB Conc 31.9 g/dL (30-55); Mean Corpuscular Hemoglobin 27.4 pg (27-33); Mean Platelet Volume 9.4 fL (7.4-10.4); Monocytes # 0.5 10^3/uL (0.2-0.9); Monocytes % 5.9 %; Neutrophils # 7.39 10^3/uL (1.8-7.7); Neutrophils % 87.2 %; Nucleated Red Blood Cells % 0 %; Platelet Count 294 10^3/cmm (157-399); Red Cell Distribution Width 12.6 % (12.1-15.1); White Blood Count 8.48 10^3/uL (3.29-11.43)
[2024-06-16 20:55] LABS: Alanine Aminotransferase 13 U/L (0-41); Albumin Level 3.1 g/dL (3.5-5.2); Alkaline Phosphatase 102 U/L (40-130); Anion Gap 15.7 (5-19); Aspartate Amino Transferase 16 U/L (0-40); Blood Urea Nitrogen 26 mg/dL (8-23); Calcium 8.8 mg/dL (8.5-10.5); Carbon Dioxide 22 mmol/L (22-29); Chloride 102 mmol/L (98-107); Creatinine Clr Calc Pharmacy 36.9226; Globulin 3.6 g/dL (1.3-4.6); Glucose 108 mg/dL (65-115); NT Pro B Type Natriuretic Pept 635 pg/mL (0-450); Osmolality Calculated 287 mOsm/kg (285-295); Potassium 3.7 mmol/L (3.5-5.1); Sodium 136 mmol/L (136-145); Total Bilirubin 0.4 mg/dL (0.15-1.2); Total Protein 6.7 g/dL (6.6-8.7)
--- NOTE | 2024-06-16 21:37 | P.HP_ITS ---
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 Patient is living with his who is not able to take care of him anymore, is already in touch with [place] social service to get him to a correction. They live in [facility] closer to [facility], came to [place] on request of Mr. Schmitz. Mr. Schmitz has dementia, he is full code. No recent falls, chest pain fever nausea vomiting. All family members recently recovered from diarrhea. 3 weeks ago patient was evaluated at [facility] for possibility of stroke. At home patient takes amlodipine and lisinopril. He has chronic kidney disease stage IV as per the . Hospital service was requested to admit the patient for hypertensive urgency blood pressure is 163/110-mmhg. patient is not endorsing any chest pain or shortness of breath. Review of Systems 2 Const: Denies: fever(s) Eyes: Denies: change in vision ENMT: Denies: throat pain Card: Denies: chest pain Resp: Denies: dyspnea Medications/Allergies Home Medications Medication Instructions Recorded Confirmed Last Taken Type lisinopril 10 mg tablet 10 mg PO DAILY #30 tabs 09/25/21 08/13/23 Unknown Rx amlodipine 10 mg tablet 10 mg PO DAILY #30 tabs 12/29/22 08/13/23 Unknown Rx DME: Walker #1 ea 08/13/23 08/13/23 Unknown Rx Allergies Allergy/AdvReac Type Severity Reaction Status Date / Time ibuprofen [From Motrin] Allergy ALGY-Rash Verified 05/14/23 13:53 tetanus and diphtheria Allergy ALGY-Anaphy Verified 05/14/23 13:53 toxoids laxis PFSH Acute 2 PFSH: Medical History BPH (benign prostatic hyperplasia) GERD (gastroesophageal reflux disease) Moderate major depression Kidney disease Dementia Hypertension Surgical History History of appendectomy No pertinent past surgical history Family History Other Dementia Diabetes Social History Smoking and tobacco/nicotine status: current every day tobacco/nicotine user cigarettes Packs smoked per day: 1 Quit status (tobacco/nicotine): not considering quitting Alcohol intake: never Substance/Drug Use: never Vitals/I&O/Wt Last Vital Signs Temp 97.6 F 06/16/24 18:39 Pulse 69 06/16/24 19:11 Resp 18 06/16/24 19:11 BP 163/110 06/16/24 19:11 Pulse Ox 94 06/16/24 19:11 O2 Del Method Room Air 06/16/24 19:11 06/16/24 06/16/24 06/16/24 06:59 14:59 22:59 Intake Total 250 / 250 Balance 250 / 250 Weight last 48 hrs Weight 73.936 kg Physical Exam 2 Narrative: Patient is awake and alert Laying supine No active distress Swelling of wrist noted no tenderness or redness Lower extremity no swelling No active chest pain S1, S2 Hypertensive Patient answers appropriately to simple questions Following commands Looks dehydrated Data 06/16/24 20:00 06/16/24 20:00 A&P Assessment and plan (1) Hypertension: Qualifiers: Hypertension type: resistant hypertension Qualified Code(s): I1A.0 - Resistant hypertension (2) Adult failure to thrive: (3) GERD (gastroesophageal reflux disease): (4) Kidney disease: (5) BPH (benign prostatic hyperplasia): (6) Dementia: (7) Wrist swelling: Plan Hypertensive urgency underlying chronic kidney disease stage IV I will hold lisinopril use amlodipine, hydralazine and Imdur, avoid metoprolol patient is bradycardic Patient will need correction placement, not able to take care of him at home, [facility], she is already in touch with [place] licensed clinical social worker. She is stating that she was supposed to hear back from them today but she has not. Patient is asymptomatic Dehydrated He is wheelchair-bound History of dementia no acute decompensation Recent CVA with residual weakness inability to walk and sit in a chair Patient eats regular diet as per the Full code Goals of care discussed with his They live 2 hours away from here closer to [facility] Attestations 2 Medical Necessity Statement*: Will need correction placement, might be able to go to nursing of within 48 hours Diagnoses Hypertension I1A.0 Hypertension type: resistant hypertension Adult failure to thrive R62.7 GERD (gastroesophageal reflux disease) K21.9 Kidney disease N28.9 BPH (benign prostatic hyperplasia) N40.0 Dementia F03.90 Wrist swelling M25.439
[2024-06-16 22:08] LABS: Thyroid Stimulating Hormone 1.52 uIU/mL (0.27-4.20); Uric Acid 5.3 mg/dL (3.4-7.0)
[2024-06-16] MEDS: enoxaparin 40 mg/0.4 mL Syringe SUBCUT (23:05)
[2024-06-16] MEDS: isosorbide mononitrate 20 mg Tablet PO (23:06)
[2024-06-16] MEDS: hyDRALAzine 20 mg/mL INJ 1 mL 5 MG IVP (23:06)
[2024-06-17] VITALS (7 sets, daily range): BP systolic 113–182; BP diastolic 70–95; PULSE 60–99; RESP 16–22; TEMP 36.3–36.8; O2SAT 94–97
[2024-06-17 00:27] LABS: Vitamin B12 473 pg/mL (232-1245)
[2024-06-17 06:42] LABS: Blood Urea Nitrogen 26 mg/dL (8-23); Carbon Dioxide 22 mmol/L (22-29); Chloride 104 mmol/L (98-107); Creatinine Clr Calc Pharmacy 29.4288; Glucose 101 mg/dL (65-115); Magnesium 2.1 mg/dL (1.7-2.3); Osmolality Calculated 291 mOsm/kg (285-295); Sodium 138 mmol/L (136-145)
[2024-06-17 06:51] LABS: Anion Gap 15.5 (5-19); Potassium 3.5 mmol/L (3.5-5.1)
[2024-06-17] MEDS: isosorbide mononitrate 20 mg Tablet PO ×2 (07:46→17:05)
[2024-06-17] MEDS: amlodipine 10 mg Tablet PO (07:46)
--- NOTE | 2024-06-17 09:25 | PC.CHAP ---
Pastoral Care Encounter/Spiritual Assessment Type of Contact [] Declined mandrel puller visit [] Patient/Family/Request visit [] Outpatient visit [] Follow-up visit [] Physician referral [] Code/Alert [] Routine visit [] Staff referral [] Actively dying [] Patient sleeping [] Family support [] [] Out of room [] Palliative care [] [x] Receiving care in room [] Pre-surgical visit [] Trauma [] Long length of stay [] ICU visit [] Other: Relational/Emotional Strength [] Patient feels connected with others/family/visitors/staff [] Distress [] Loneliness/isolation [] Abandonment Spirituality of Patient [] Person of Anisa [] Attends Hindu of their Anisa [] Believes in Prayer [] Reads Bible or Pentecostal materials [] There are Spiritual issues to be addressed Telephoner Interventions [] Prayer [] Active listening [] Non-anxious presence [] Spiritual/emotional support [] Crisis/trauma care [] Spiritual counseling [] Bereavement support [] Provided bereavement packet [] Provided Bible/devotional materials [] Provided toy/stuffed animal, coloring book to patient or family member [] Provided Communion [] Anointing/[place] [] Salvation [] Completed spiritual assessment [] Other: Impact on Illness or Injury [] Angry [] Fearful [] Anxious [] Often cries [] Exhaustion [] Unable to work [] Unable to attend scientology [] Unable to walk/stand [] Unable to read [] Unable to drive [] Unable to eat/drink [] Unable to sleep [] Unable to be with family [] Patient intubated [] Other: Summary Time spent with patient
--- NOTE | 2024-06-17 09:47 | PC.PHAR ---
[facility]
--- NOTE | 2024-06-17 13:15 | PM.PN ---
Subjective Subjective: seen this morning no acute events overnight aox3 denies any pain, sob, nv at this time Vitals/I&O/Wt Last Vital Signs Temp 98.1 F 06/17/24 11:44 Pulse 74 06/17/24 11:44 Resp 16 06/17/24 11:44 BP 121/81 06/17/24 11:44 Pulse Ox 95 06/17/24 11:44 O2 Del Method Nasal Cannula 06/17/24 11:44 06/16/24 06/17/24 06/17/24 22:59 06:59 14:59 Intake Total 250 / 250 120 / 370 360 / 360 Balance 250 / 250 120 / 370 360 / 360 Weight last 48 hrs Weight 71.214 kg Weight 67.676 kg Weight 73.936 kg Physical Exam Narrative: Patient is awake and alert Laying supine No active distress Lower extremity no swelling No active chest pain S1, S2 Hypertensive Patient answers appropriately to simple questions Following commands Data 06/16/24 20:00 06/17/24 05:21 A&P Assessment and plan (1) Hypertension: Qualifiers: Hypertension type: resistant hypertension Qualified Code(s): I1A.0 - Resistant hypertension (2) Adult failure to thrive: (3) GERD (gastroesophageal reflux disease): (4) Kidney disease: (5) BPH (benign prostatic hyperplasia): (6) Dementia: (7) Wrist swelling: Plan Hypertensive urgency underlying chronic kidney disease stage IV I will hold lisinopril use amlodipine, hydralazine and Imdur, avoid metoprolol patient is bradycardic Patient will need shelter placement, not able to take care of him at home, requesting services through [place] [facility], she is already in touch with [place] [employer] social studies tutor. She is stating that she was supposed to hear back from them today but she has not. Patient is asymptomatic Dehydrated He is wheelchair-bound History of dementia no acute decompensation Recent CVA with residual weakness inability to walk and sit in a chair Patient eats regular diet as per the Full code Goals of care discussed with his They live 2 hours away from here closer to [facility] 06/17/2024 - BP stable - continue medications as ordered and monitor - outreach and education social worker consulted, placement to be setup -PT/OT Attestations Medical Necessity Statement*: Will need shelter placement, might be able to go to nursing of within 48 hours Diagnoses Hypertension I1A.0 Hypertension type: resistant hypertension Adult failure to thrive R62.7 GERD (gastroesophageal reflux disease) K21.9 Kidney disease N28.9 BPH (benign prostatic hyperplasia) N40.0 Dementia F03.90 Wrist swelling M25.439
[2024-06-17] MEDS: enoxaparin 40 mg/0.4 mL Syringe SUBCUT (23:08)
[2024-06-18] VITALS (7 sets, daily range): BP systolic 116–171; BP diastolic 69–89; PULSE 70–99; RESP 16–18; TEMP 36.2–36.9; O2SAT 95–97
[2024-06-18 05:37] LABS: Basophils % 0.5 %; Eosinophils # 0.2 10^3/uL (0.0-0.8); Eosinophils % 2.9 %; Hematocrit 32.4 % (37-53); Lymphocytes # 1.3 10^3/uL (0.8-4.8); Lymphocytes % 22.3 %; Mean Corpuscular HGB Conc 31.8 g/dL (30-55); Mean Corpuscular Hemoglobin 27.8 pg (27-33); Mean Corpuscular Volume 87.6 fl (82-101); Mean Platelet Volume 9.5 fL (7.4-10.4); Monocytes # 0.6 10^3/uL (0.2-0.9); Monocytes % 9.7 %; Neutrophils # 3.71 10^3/uL (1.8-7.7); Neutrophils % 64.3 %; Nucleated Red Blood Cells % 0 %; Platelet Count 268 10^3/cmm (157-399); Red Cell Distribution Width 12.6 % (12.1-15.1); White Blood Count 5.78 10^3/uL (3.29-11.43)
[2024-06-18 05:59] LABS: Anion Gap 15.7 (5-19); Blood Urea Nitrogen 26 mg/dL (8-23); Calcium 8.6 mg/dL (8.5-10.5); Carbon Dioxide 22 mmol/L (22-29); Chloride 104 mmol/L (98-107); Creatinine Clr Calc Pharmacy 28.3767; Glucose 93 mg/dL (65-115); Magnesium 2.1 mg/dL (1.7-2.3); Osmolality Calculated 290 mOsm/kg (285-295); Potassium 3.7 mmol/L (3.5-5.1); Sodium 138 mmol/L (136-145)
[2024-06-18] MEDS: hyDRALAzine 25 mg Tablet PO (08:14)
[2024-06-18] MEDS: amlodipine 10 mg Tablet PO (08:14)
[2024-06-18] MEDS: isosorbide mononitrate 20 mg Tablet PO ×2 (08:14→17:01)
--- NOTE | 2024-06-18 16:13 | PM.PN ---
Subjective Subjective: seen today labs reviewed awaiting placement Vitals/I&O/Wt Last Vital Signs Temp 97.8 F 06/18/24 11:10 Pulse 83 06/18/24 11:10 Resp 16 06/18/24 11:10 BP 116/69 06/18/24 11:10 Pulse Ox 95 06/18/24 11:10 O2 Del Method Room Air 06/18/24 11:10 06/18/24 06/18/24 06/18/24 06:59 14:59 22:59 Intake Total 354 / 354 Balance 354 / 354 Weight last 48 hrs Weight 65 kg Weight 71.214 kg Weight 67.676 kg Weight 73.936 kg Physical Exam Narrative: Patient is awake and alert Laying supine No active distress Lower extremity no swelling No active chest pain S1, S2 Hypertensive Patient answers appropriately to simple questions Following commands Data 06/19/24 10:28 06/19/24 10:28 A&P Assessment and plan (1) Hypertension: Qualifiers: Hypertension type: resistant hypertension Qualified Code(s): I1A.0 - Resistant hypertension (2) Adult failure to thrive: (3) GERD (gastroesophageal reflux disease): (4) Kidney disease: (5) BPH (benign prostatic hyperplasia): (6) Dementia: (7) Wrist swelling: Plan Hypertensive urgency underlying chronic kidney disease stage IV I will hold lisinopril use amlodipine, hydralazine and Imdur, avoid metoprolol patient is bradycardic Patient will need group home placement, not able to take care of him at home, requesting services through [place] [facility], she is already in touch with [place] social media assistant. She is stating that she was supposed to hear back from them today but she has not. Patient is asymptomatic Dehydrated He is wheelchair-bound History of dementia no acute decompensation Recent CVA with residual weakness inability to walk and sit in a chair Patient eats regular diet as per the Full code Goals of care discussed with his They live 2 hours away from here closer to [facility] 06/18/2024 - BP stable - continue medications as ordered and monitor - hospice social worker consulted, placement to be setup -PT/OT - spoke to significant other over phone, they are not legally . pt does have 2 sons, a daughter and a brother who may be next of kin. his GF will attempt to get us their contact info. Will discuss with case management. Attestations Medical Necessity Statement*: awaiting placement Diagnoses Hypertension I1A.0 Hypertension type: resistant hypertension Adult failure to thrive R62.7 GERD (gastroesophageal reflux disease) K21.9 Kidney disease N28.9 BPH (benign prostatic hyperplasia) N40.0 Dementia F03.90 Wrist swelling M25.439
[2024-06-18] MEDS: enoxaparin 30 mg/0.3 mL Syringe SUBCUT (23:45)
[2024-06-19] VITALS (7 sets, daily range): BP systolic 113–178; BP diastolic 75–96; PULSE 65–87; RESP 14–18; TEMP 36.4–36.8; O2SAT 95–98
[2024-06-19] MEDS: hyDRALAzine 25 mg Tablet PO ×2 (03:55→17:34)
--- NOTE | 2024-06-19 04:04 | PC.NURSE ---
Patient had a BP of 178/87; notified [facility] hospitalist Dr Church and he advised to give the scheduled 0900 Hydralazine dose now.
[2024-06-19] MEDS: amlodipine 10 mg Tablet PO (09:29)
[2024-06-19] MEDS: isosorbide mononitrate 20 mg Tablet PO ×2 (09:31→17:34)
[2024-06-19 10:51] LABS: Basophils % 0.5 %; Eosinophils # 0.2 10^3/uL (0.0-0.8); Eosinophils % 2.8 %; Hematocrit 37.3 % (37-53); Lymphocytes % 15.8 %; Mean Corpuscular HGB Conc 31.4 g/dL (30-55); Mean Corpuscular Hemoglobin 27.4 pg (27-33); Mean Corpuscular Volume 87.4 fl (82-101); Mean Platelet Volume 10.1 fL (7.4-10.4); Monocytes # 0.6 10^3/uL (0.2-0.9); Monocytes % 9.1 %; Neutrophils # 4.65 10^3/uL (1.8-7.7); Neutrophils % 71.5 %; Nucleated Red Blood Cells % 0 %; Platelet Count 297 10^3/cmm (157-399); Red Blood Count 4.27 10^6/uL (3.85-5.65); Red Cell Distribution Width 12.8 % (12.1-15.1)
[2024-06-19 11:14] LABS: Anion Gap 17.2 (5-19); Blood Urea Nitrogen 25 mg/dL (8-23); Calcium 8.9 mg/dL (8.5-10.5); Carbon Dioxide 23 mmol/L (22-29); Chloride 100 mmol/L (98-107); Creatinine Clr Calc Pharmacy 30.1988; Glucose 130 mg/dL (65-115); Osmolality Calculated 288 mOsm/kg (285-295); Potassium 4.2 mmol/L (3.5-5.1); Sodium 136 mmol/L (136-145)
--- NOTE | 2024-06-19 14:40 | P.PN_ITS ---
Subjective 2 Subjective: seen today labs reviewed awaiting placement Vitals/I&O/Wt Last Vital Signs Temp 97.8 F 06/19/24 11:46 Pulse 82 06/19/24 11:46 Resp 16 06/19/24 11:46 BP 113/76 06/19/24 11:46 Pulse Ox 98 06/19/24 11:46 O2 Del Method Room Air 06/19/24 11:46 06/18/24 06/19/24 06/19/24 22:59 06:59 14:59 Intake Total 118 / 472 360 / 360 Balance 118 / 472 360 / 360 Weight last 48 hrs Weight 67.268 kg Weight 65 kg Physical Exam 2 Narrative: Patient is awake and alert Laying supine No active distress Lower extremity no swelling No active chest pain S1, S2 Hypertensive Patient answers appropriately to simple questions Following commands Data 06/19/24 10:28 06/19/24 10:28 A&P Assessment and plan (1) Hypertension: Qualifiers: Hypertension type: resistant hypertension Qualified Code(s): I1A.0 - Resistant hypertension (2) Adult failure to thrive: (3) GERD (gastroesophageal reflux disease): (4) Kidney disease: (5) BPH (benign prostatic hyperplasia): (6) Dementia: (7) Wrist swelling: Plan Hypertensive urgency underlying chronic kidney disease stage IV I will hold lisinopril use amlodipine, hydralazine and Imdur, avoid metoprolol patient is bradycardic Patient will need [facility] placement, not able to take care of him at home, requesting services through [place] [facility], she is already in touch with [place] public health social worker. She is stating that she was supposed to hear back from them today but she has not. Patient is asymptomatic Dehydrated He is wheelchair-bound History of dementia no acute decompensation Recent CVA with residual weakness inability to walk and sit in a chair Patient eats regular diet as per the Full code Goals of care discussed with his They live 2 hours away from here closer to [facility] 06/18/2024 - BP stable - continue medications as ordered and monitor - social media senior associate consulted, placement to be setup -PT/OT - spoke to significant other over phone, they are not legally . pt does have 2 sons, a daughter and a brother who may be next of kin. his GF will attempt to get us their contact info. Will discuss with case management. 06/19 medically ready for discharge pending placement awaiting response from case management Attestations 2 Medical Necessity Statement*: awaiting placement Diagnoses Hypertension I1A.0 Hypertension type: resistant hypertension Adult failure to thrive R62.7 GERD (gastroesophageal reflux disease) K21.9 Kidney disease N28.9 BPH (benign prostatic hyperplasia) N40.0 Dementia F03.90 Wrist swelling M25.439
[2024-06-19] MEDS: enoxaparin 30 mg/0.3 mL Syringe SUBCUT (23:57)
[2024-06-20] VITALS (7 sets, daily range): BP systolic 117–153; BP diastolic 67–85; PULSE 74–82; RESP 14–17; TEMP 36.6–36.7; O2SAT 96–98
[2024-06-20] MEDS: isosorbide mononitrate 20 mg Tablet PO ×2 (09:41→17:15)
[2024-06-20] MEDS: amlodipine 10 mg Tablet PO (09:42)
[2024-06-20] MEDS: hyDRALAzine 25 mg Tablet PO ×2 (09:42→17:15)
--- NOTE | 2024-06-20 13:55 | P.PN_ITS ---
Subjective 2 Subjective: seen today labs reviewed awaiting placement Patient working with physical therapy and is a maximum assist at this time. Vitals/I&O/Wt Last Vital Signs Temp 97.8 F 06/20/24 11:32 Pulse 77 06/20/24 11:32 Resp 14 06/20/24 11:32 BP 117/68 06/20/24 11:32 Pulse Ox 96 06/20/24 11:32 O2 Del Method Room Air 06/20/24 11:32 06/19/24 06/20/24 06/20/24 22:59 06:59 14:59 Intake Total 120 / 480 720 / 720 Balance 120 / 480 720 / 720 Weight last 48 hrs Weight 67.273 kg Weight 67.268 kg Physical Exam 2 Narrative: Patient is awake and alert Sitting up on edge of bed with physical therapist in place. No active distress Lower extremity no swelling No active chest pain S1, S2 Hypertensive Patient answers appropriately to simple questions Following commands Data 06/19/24 10:28 06/19/24 10:28 A&P Assessment and plan (1) Hypertension: Qualifiers: Hypertension type: resistant hypertension Qualified Code(s): I1A.0 - Resistant hypertension (2) Adult failure to thrive: (3) GERD (gastroesophageal reflux disease): (4) Kidney disease: (5) BPH (benign prostatic hyperplasia): (6) Dementia: (7) Wrist swelling: Plan Hypertensive urgency underlying chronic kidney disease stage IV I will hold lisinopril use amlodipine, hydralazine and Imdur, avoid metoprolol patient is bradycardic Patient will need long-term placement, not able to take care of him at home, requesting services through [place] [facility], she is already in touch with [place] protective services social worker. She is stating that she was supposed to hear back from them today but she has not. Patient is asymptomatic Dehydrated He is wheelchair-bound History of dementia no acute decompensation Recent CVA with residual weakness inability to walk and sit in a chair Patient eats regular diet as per the Full code Goals of care discussed with his They live 2 hours away from here closer to [facility] 06/18/2024 - BP stable - continue medications as ordered and monitor - social services aide consulted, placement to be setup -PT/OT - spoke to significant other over phone, they are not legally . pt does have 2 sons, a daughter and a brother who may be next of kin. his GF will attempt to get us their contact info. Will discuss with case management. 06/20 medically ready for discharge pending placement awaiting response from case management Patient is maximum assistance at this time. Attestations 2 Medical Necessity Statement*: awaiting placement Diagnoses Hypertension I1A.0 Hypertension type: resistant hypertension Adult failure to thrive R62.7 GERD (gastroesophageal reflux disease) K21.9 Kidney disease N28.9 BPH (benign prostatic hyperplasia) N40.0 Dementia F03.90 Wrist swelling M25.439
[2024-06-20] MEDS: enoxaparin 30 mg/0.3 mL Syringe SUBCUT (22:34)
[2024-06-21] VITALS (7 sets, daily range): BP systolic 121–169; BP diastolic 64–86; PULSE 70–82; RESP 15–18; TEMP 36.4–37.2; O2SAT 93–98
--- NOTE | 2024-06-21 06:08 | PM.PN ---
Subjective Subjective: seen today no acute events overnight Vitals/I&O/Wt Last Vital Signs Temp 98.9 F 06/21/24 04:00 Pulse 82 06/21/24 04:00 Resp 15 06/21/24 04:00 BP 150/86 06/21/24 04:00 Pulse Ox 97 06/21/24 04:00 O2 Del Method Room Air 06/21/24 04:00 06/20/24 06/20/24 06/21/24 14:59 22:59 06:59 Intake Total 720 / 720 360 / 1080 120 / 1200 Balance 720 / 720 360 / 1080 120 / 1200 Weight last 48 hrs Weight 66.95 kg Weight 67.273 kg Physical Exam Narrative: no acute distress Lower extremity no swelling No active chest pain S1, S2 Hypertensive Following commands Data 06/19/24 10:28 06/19/24 10:28 A&P Assessment and plan (1) Hypertension: Qualifiers: Hypertension type: resistant hypertension Qualified Code(s): I1A.0 - Resistant hypertension (2) Adult failure to thrive: (3) GERD (gastroesophageal reflux disease): (4) Kidney disease: (5) BPH (benign prostatic hyperplasia): (6) Dementia: (7) Wrist swelling: Plan Hypertensive urgency underlying chronic kidney disease stage IV I will hold lisinopril use amlodipine, hydralazine and Imdur, avoid metoprolol patient is bradycardic Patient will need [place] [facility], not able to take care of him at home, requesting services through [facility], she is already in touch with [facility]. She is stating that she was supposed to hear back from them today but she has not. Patient is asymptomatic Dehydrated He is wheelchair-bound History of dementia no acute decompensation Recent CVA with residual weakness inability to walk and sit in a chair Patient eats regular diet as per the Full code Goals of care discussed with his They live 2 hours away from here closer to [facility] 06/18/2024 - BP stable - continue medications as ordered and monitor - plant operations worker consulted, placement to be setup -PT/OT - spoke to significant other over phone, they are not legally . pt does have 2 sons, a daughter and a brother who may be next of kin. his GF will attempt to get us their contact info. Will discuss with case management. 06/21 medically ready for discharge pending placement awaiting response from case management Patient is maximum assistance at this time. Attestations Medical Necessity Statement*: awaiting placement Diagnoses Hypertension I1A.0 Hypertension type: resistant hypertension Adult failure to thrive R62.7 GERD (gastroesophageal reflux disease) K21.9 Kidney disease N28.9 BPH (benign prostatic hyperplasia) N40.0 Dementia F03.90 Wrist swelling M25.439
[2024-06-21] MEDS: amlodipine 10 mg Tablet PO (09:10)
[2024-06-21] MEDS: hyDRALAzine 25 mg Tablet PO ×2 (09:10→18:17)
[2024-06-21] MEDS: isosorbide mononitrate 20 mg Tablet PO ×2 (09:10→18:17)
--- NOTE | 2024-06-21 10:32 | PC.NURSE ---
Patient's brother, Adrian Bar, called and was asking about patient information. Adrian is not listed on patient's PHI authorization sheet so this nurse asked the patient directly for his brother's name and if it was okay discuss health information with patient's brother. Patient verbalized that his brother's name was Adrian and stated this nurse could discuss hospital stay with him.
[2024-06-21] MEDS: enoxaparin 30 mg/0.3 mL Syringe SUBCUT (22:17)
[2024-06-22] VITALS (8 sets, daily range): BP systolic 119–157; BP diastolic 75–85; PULSE 71–88; RESP 15–20; TEMP 36.4–37; O2SAT 95–97
[2024-06-22 05:13] LABS: Basophils % 0.7 %; Eosinophils # 0.3 10^3/uL (0.0-0.8); Eosinophils % 6.3 %; Hematocrit 34.4 % (37-53); Lymphocytes # 1.5 10^3/uL (0.8-4.8); Mean Corpuscular HGB Conc 31.1 g/dL (30-55); Mean Corpuscular Hemoglobin 27.4 pg (27-33); Mean Platelet Volume 9.7 fL (7.4-10.4); Monocytes # 0.6 10^3/uL (0.2-0.9); Monocytes % 10.6 %; Neutrophils % 53.7 %; Nucleated Red Blood Cells % 0 %; Platelet Count 317 10^3/cmm (157-399); Red Blood Count 3.91 10^6/uL (3.85-5.65); Red Cell Distribution Width 13.1 % (12.1-15.1)
[2024-06-22 05:35] LABS: Anion Gap 14.9 (5-19); Blood Urea Nitrogen 28 mg/dL (8-23); Calcium 8.7 mg/dL (8.5-10.5); Carbon Dioxide 24 mmol/L (22-29); Chloride 104 mmol/L (98-107); Glucose 92 mg/dL (65-115); Magnesium 2.1 mg/dL (1.7-2.3); Osmolality Calculated 293 mOsm/kg (285-295); Potassium 3.9 mmol/L (3.5-5.1); Sodium 139 mmol/L (136-145)
[2024-06-22] MEDS: isosorbide mononitrate 20 mg Tablet PO ×2 (08:09→17:10)
[2024-06-22] MEDS: amlodipine 10 mg Tablet PO (08:10)
[2024-06-22] MEDS: hyDRALAzine 25 mg Tablet PO ×2 (08:10→17:10)
--- NOTE | 2024-06-22 16:10 | PC.OT ---
OT TREATMENT ATTEMPTED IN P.M. PATIENT SLEEPING SOUNDLY. WILL ATTEMPT AGAIN TOMORROW.
--- NOTE | 2024-06-22 20:15 | PM.PN ---
Subjective Subjective: He is doing about similar. Awaiting to work with physical therapy today. Denies any new pain or discomfort. Vitals/I&O/Wt Last Vital Signs Temp 98.2 F 06/22/24 20:00 Pulse 82 06/22/24 20:00 Resp 20 H 06/22/24 20:00 BP 119/76 06/22/24 20:00 Pulse Ox 95 06/22/24 20:00 O2 Del Method Room Air 06/22/24 20:00 06/22/24 06/22/24 06/22/24 06:59 14:59 22:59 Intake Total 250 / 1450 840 / 840 720 / 1560 Balance 250 / 1450 840 / 840 720 / 1560 Weight last 48 hrs Weight 66.814 kg Weight 66.95 kg Physical Exam Const: COMMON NORMALS: alert GENERAL APPEARANCE: cooperative ORIENTATION/CONSCIOUSNESS: Yes awake HENMT: COMMON NORMALS: oropharynx normal Neck/C-Spine: COMMON NORMALS: no JVD Resp: COMMON NORMALS: normal respiratory effort and clear to auscultation bilaterally AUSCULTATION: clear to auscultation bilaterally Cardio: COMMON NORMALS: no JVD, regular rhythm, S1 normal heart sound present, S2 normal heart sound present and No murmurs present (Cardio) RHYTHM: regular rhythm HEART SOUNDS: S1 normal heart sound present and S2 normal heart sound present GI: COMMON NORMALS: Normal to inspection, nondistended, normoactive bowel sounds present, Soft to palpation and non-tender PALPATION: Yes Soft to palpation Extremity: COMMON NORMALS: no joint enlargement and no pedal edema Neuro: COMMON NORMALS: moves all extremities SENSORIUM/ORIENTATION: Yes alert Skin: COMMON NORMALS: no rashes or lesions noted GENERAL SKIN EXAM: no rashes or lesions noted Data 06/22/24 04:26 06/22/24 04:26 A&P Assessment and plan (1) Hypertension: Qualifiers: Hypertension type: resistant hypertension Qualified Code(s): I1A.0 - Resistant hypertension (2) Adult failure to thrive: (3) GERD (gastroesophageal reflux disease): (4) Kidney disease: (5) BPH (benign prostatic hyperplasia): (6) Dementia: (7) Wrist swelling: Plan Hypertensive urgency underlying chronic kidney disease stage IV: Reviewed blood pressure. Currently controlled. Continue amlodipine, hydralazine, Imdur. Reviewed CBC, BMP, magnesium. Physical deconditioning: Continue physical therapy. Discussed with child support case officer, PT, nursing. Max assist. His life partner is unable to assist him at home. He is wheelchair-bound History of dementia no acute decompensation Recent CVA with residual weakness inability to walk and sit in a chair Patient eats regular diet as per the Attestations Medical Necessity Statement*: Continue hospitalization for continued optimization of blood pressure control, further arrangements for rehabilitation with overall functional decline, with difficult social situation his life partner unable to assist him at home. and High MDM includes amount and/or complexity of data reviewed/ordered [ resulted lab(s)/test(s) and other healthcare professional discussion] as documented Diagnoses Hypertension I1A.0 Hypertension type: resistant hypertension Adult failure to thrive R62.7 GERD (gastroesophageal reflux disease) K21.9 Kidney disease N28.9 BPH (benign prostatic hyperplasia) N40.0 Dementia F03.90 Wrist swelling M25.439
[2024-06-22] MEDS: enoxaparin 30 mg/0.3 mL Syringe SUBCUT (22:22)
[2024-06-23 03:51] VITALS: BP 155/90; PULSE 77; RESP 14; TEMP 36.7; O2SAT 94
[2024-06-23 07:42] VITALS: BP 157/86; PULSE 79; RESP 15; TEMP 37.3; O2SAT 94
[2024-06-23] MEDS: isosorbide mononitrate 20 mg Tablet PO ×2 (07:52→17:01)
[2024-06-23] MEDS: hyDRALAzine 25 mg Tablet PO ×2 (07:52→17:01)
[2024-06-23] MEDS: amlodipine 10 mg Tablet PO (07:52)
[2024-06-23 08:53] VITALS: PULSE 83; RESP 16; O2SAT 96
[2024-06-23 11:35] VITALS: BP 140/86; PULSE 93; RESP 16; TEMP 37.2; O2SAT 94
[2024-06-23 15:15] VITALS: BP 130/83; PULSE 86; RESP 17; TEMP 36.9; O2SAT 96
[2024-06-23 16:30] LABS: SARS Covid-2 Antigen negative (Negative)
--- NOTE | 2024-06-23 19:30 | P.PN_ITS ---
Subjective 2 Subjective: He denies any new symptoms. Denies pain or discomfort. Awaits working with therapy today. Vitals/I&O/Wt Last Vital Signs Temp 98.4 F 06/23/24 15:15 Pulse 86 06/23/24 15:15 Resp 17 06/23/24 15:15 BP 130/83 06/23/24 15:15 Pulse Ox 96 06/23/24 15:15 O2 Del Method Room Air 06/23/24 15:15 06/23/24 06/23/24 06/23/24 06:59 14:59 22:59 Intake Total 150 / 1710 238 / 238 Balance 150 / 1710 238 / 238 Weight last 48 hrs Weight 64.592 kg Weight 66.814 kg Physical Exam 2 Narrative: Up in chair having lunch. Const: COMMON NORMALS: alert GENERAL APPEARANCE: cooperative O RIENTATION/CONSCIOUSNESS: Yes awake HENMT: COMMON NORMALS: oropharynx normal Neck/C-Spine: COMMON NORMALS: no JVD Resp: COMMON NORMALS: normal respiratory effort and clear to auscultation bilaterally AUSCULTATION: clear to auscultation bilaterally Cardio: COMMON NORMALS: no JVD, regular rhythm, S1 normal heart sound present, S2 normal heart sound present and No murmurs present (Cardio) RHYTHM: regular rhythm HEART SOUNDS: S1 normal heart sound present and S2 normal heart sound present GI: COMMON NORMALS: Normal to inspection, nondistended, normoactive bowel sounds present, Soft to palpation and non-tender PALPATION: Yes Soft to palpation Extremity: COMMON NORMALS: no joint enlargement and no pedal edema Neuro: COMMON NORMALS: moves all extremities SENSORIUM/ORIENTATION: Yes alert Skin: COMMON NORMALS: no rashes or lesions noted GENERAL SKIN EXAM: no rashes or lesions noted Data 06/22/24 04:26 06/22/24 04:26 A&P Assessment and plan (1) Hypertension: Qualifiers: Hypertension type: resistant hypertension Qualified Code(s): I1A.0 - Resistant hypertension (2) Adult failure to thrive: (3) GERD (gastroesophageal reflux disease): (4) Kidney disease: (5) BPH (benign prostatic hyperplasia): (6) Dementia: (7) Wrist swelling: Plan Hypertensive urgency underlying chronic kidney disease stage IV: Blood pressure slightly on the higher side, highest 157/86. Continue multipin, hydralazine, Imdur. Resume tamsulosin. Monitor blood pressures for risk of hypotension, holding off on resuming lisinopril. Physical deconditioning: Discussed with case management, should have approval to proceed to group home in the morning. Continue physical therapy. Discussed with case management manager, PT, nursing. Max assist. His life partner is unable to assist him at home. He is wheelchair-bound History of dementia no acute decompensation Recent CVA with residual weakness inability to walk and sit in a chair Patient eats regular diet as per the Attestations 2 Medical Necessity Statement*: Continue hospitalization for continued optimization of blood pressure control, further arrangements for rehabilitation with overall functional decline, with difficult social situation his life partner unable to assist him at home. Diagnoses Hypertension I1A.0 Hypertension type: resistant hypertension Adult failure to thrive R62.7 GERD (gastroesophageal reflux disease) K21.9 Kidney disease N28.9 BPH (benign prostatic hyperplasia) N40.0 Dementia F03.90 Wrist swelling M25.439
[2024-06-23 19:50] VITALS: BP 116/70; PULSE 84; RESP 18; TEMP 37.1; O2SAT 94
[2024-06-23] MEDS: enoxaparin 30 mg/0.3 mL Syringe SUBCUT (21:37)
[2024-06-24 00:12] VITALS: BP 143/83; PULSE 76; RESP 18; TEMP 36.7; O2SAT 95
[2024-06-24 03:58] VITALS: BP 121/73; PULSE 72; RESP 16; TEMP 36.5; O2SAT 96
[2024-06-24 04:44] VITALS: BMI 22.4
[2024-06-24 07:19] VITALS: BP 144/81; PULSE 72; RESP 16; TEMP 37.1; O2SAT 94
[2024-06-24 08:12] VITALS: PULSE 83; RESP 18; O2SAT 98
[2024-06-24] MEDS: amlodipine 10 mg Tablet PO (08:19)
[2024-06-24] MEDS: hyDRALAzine 25 mg Tablet PO (08:19)
[2024-06-24] MEDS: tamsulosin 0.4 mg Capsule PO (08:19)
[2024-06-24] MEDS: isosorbide mononitrate 20 mg Tablet PO (08:19)
--- NOTE | 2024-06-24 08:47 | PM.DCS ---
Discharge Providers Date of Admission: 06/16/24 21:38 Date of Discharge: June 24, 2024 Attending Provider at Admission: Leila Church MD Attending Provider at Discharge: Bolivar June Primary Care Provider: Renata Harvey MD Diagnoses at Discharge Discharge Diagnosis (1) Hypertension: Status: Acute Qualifiers: Hypertension type: resistant hypertension Qualified Code(s): I1A.0 - Resistant hypertension (2) Adult failure to thrive: Status: Acute (3) GERD (gastroesophageal reflux disease): Status: Acute (4) Kidney disease: Status: Acute (5) BPH (benign prostatic hyperplasia): Status: Acute (6) Dementia: Status: Acute (7) Wrist swelling: Status: Acute Reason for Visit Reason for Visit: High BP Hospital Course Hospital Course 78-year-old gentleman with history of recent stroke came into hospital due to failure to thrive, weakness, found to be hypertensive as well, living at home with his significant other who has had difficult time being able to take take care of his needs with his recent functional decline. Found to be physically deconditioned. His antihypertensives were adjusted, blood pressures showed gradual improvement. Continue to monitor blood pressures, target 120/80 over the long-term. She remained awake and alert. Work with physical therapy. Arrangements were made for him to [facility] at [facility]. Physical Exam Const: COMMON NORMALS: patient oriented x3 and alert GENERAL APPEARANCE: cooperative ORIENTATION/CONSCIOUSNESS: Yes awake HENMT: COMMON NORMALS: oropharynx normal Neck/C-Spine: COMMON NORMALS: no JVD Resp: COMMON NORMALS: normal respiratory effort and clear to auscultation bilaterally AUSCULTATION: clear to auscultation bilaterally Cardio: COMMON NORMALS: no JVD, regular rhythm, S1 normal heart sound present, S2 normal heart sound present and No murmurs present (Cardio) RHYTHM: regular rhythm HEART SOUNDS: S1 normal heart sound present and S2 normal heart sound present GI: COMMON NORMALS: Normal to inspection, nondistended, normoactive bowel sounds present, Soft to palpation and non-tender PALPATION: Yes Soft to palpation Extremity: COMMON NORMALS: no joint enlargement and no pedal edema Neuro: COMMON NORMALS: patient oriented x3 and moves all extremities SENSORIUM/ORIENTATION: Yes alert Skin: COMMON NORMALS: no rashes or lesions noted GENERAL SKIN EXAM: no rashes or lesions noted Discharge Data Studies Completed and Pending Completed Studies During Hospitalization Category Date Time Status XR chest 1V portable [id number] Stat Exams 06/16/24 18:42 Completed Radiology Impressions Chest X-Ray 06/16/24 18:42 IMPRESSION: 1. Negative for infiltrate 2. Emphysematous changes. 3. Cardiomegaly. Laboratory Results WBC 5.40 10^3/uL (3.29-11.43) 06/22/24 04:26 RBC 3.91 10^6/uL (3.85-5.65) 06/22/24 04:26 Hgb 10.70 g/dL (11.27-16.99) L 06/22/24 04:26 Hct 34.4 % (37-53) L 06/22/24 04:26 MCV 88.0 fl (82-101) 06/22/24 04:26 MCH 27.4 pg (27-33) 06/22/24 04:26 MCHC 31.1 g/dL (30-55) 06/22/24 04:26 RDW 13.1 % (12.1-15.1) 06/22/24 04:26 Plt Count 317 10^3/cmm (157-399) 06/22/24 04:26 MPV 9.7 fL (7.4-10.4) 06/22/24 04:26 Neut % (Auto) 53.7 % 06/22/24 04:26 Lymph % (Auto) 28.0 % 06/22/24 04:26 Lawrence % (Auto) 10.6 % 06/22/24 04:26 Eos % (Auto) 6.3 % 06/22/24 04:26 Baso % (Auto) 0.7 % 06/22/24 04:26 Neut # (Auto) 2.90 10^3/uL (1.8-7.7) 06/22/24 04:26 Lymph # (Auto) 1.5 10^3/uL (0.8-4.8) 06/22/24 04:26 Lawrence # (Auto) 0.6 10^3/uL (0.2-0.9) 06/22/24 04:26 Eos # (Auto) 0.3 10^3/uL (0.0-0.8) 06/22/24 04:26 Baso # (Auto) 0.0 10^3/uL (0.0-0.1) 06/22/24 04:26 Nucleated RBC % (auto) 0 % 06/22/24 04:26 Nucleated RBCs # 0.0 /100WBC 06/22/24 04:26 Sodium 139 mmol/L (136-145) 06/22/24 04:26 Potassium 3.9 mmol/L (3.5-5.1) 06/22/24 04:26 Chloride 104 mmol/L (98-107) 06/22/24 04:26 Carbon Dioxide 24 mmol/L (22-29) 06/22/24 04:26 Anion Gap 14.9 (5-19) 06/22/24 04:26 BUN 28 mg/dL (8-23) H 06/22/24 04:26 Creatinine 2.2 mg/dL (0.7-1.2) H 06/22/24 04:26 GFR Calculation Not Reportable 06/22/24 04:26 Glucose 92 mg/dL (65-115) 06/22/24 04:26 Calculated Osmolality 293 mOsm/kg (285-295) 06/22/24 04:26 Uric Acid 5.3 mg/dL (3.4-7.0) 06/16/24 20:00 Calcium 8.7 mg/dL (8.5-10.5) 06/22/24 04:26 Magnesium 2.1 mg/dL (1.7-2.3) 06/22/24 04:26 Total Bilirubin 0.4 mg/dL (0.15-1.2) 06/16/24 20:00 AST 16 U/L (0-40) 06/16/24 20:00 ALT 13 U/L (0-41) 06/16/24 20:00 Alkaline Phosphatase 102 U/L (40-130) 06/16/24 20:00 NT-Pro-B Natriuret Pep 635 pg/mL (0-450) H 06/16/24 20:00 Total Protein 6.7 g/dL (6.6-8.7) 06/16/24 20:00 Albumin 3.1 g/dL (3.5-5.2) L 06/16/24 20:00 Globulin 3.6 g/dL (1.3-4.6) 06/16/24 20:00 Vitamin B12 473 pg/mL (232-1245) 06/16/24 20:00 TSH 1.52 uIU/mL (0.27-4.20) 06/16/24 20:00 SARS-CoV-2 Ag (Rapid) negative (Negative) 06/23/24 16:04 Vitals Last Vital Signs Temp 98.7 F 06/24/24 07:19 Pulse 83 06/24/24 08:12 Resp 18 06/24/24 08:12 BP 144/81 06/24/24 07:19 Pulse Ox 98 06/24/24 08:12 O2 Del Method Room Air 06/24/24 08:12 Discharge Plan Discharge Patient Disposition: Xfer SNF Condition: Stable Prescriptions: New isosorbide mononitrate 20 mg Tablet 20 mg PO BID Qty: 180 0RF hydralazine 25 mg Tablet 25 mg PO BID Qty: 180 0RF Continued amlodipine 10 mg tablet 10 mg PO DAILY Qty: 30 0RF tamsulosin 0.4 mg capsule 0.4 mg PO DAILY cholecalciferol (vitamin D3) [Vitamin D3] 50 mcg (2,000 unit) Capsule 50 mcg PO DAILY Discontinued lisinopril 10 mg tablet 10 mg PO DAILY Qty: 30 0RF No Action (DME) DME: Walker Unit See Rx Instructions .Route Qty: 1 0RF Rx Instructions: Please dispense one rolator walker with seat. Discharge Orders: Discharge Order (Routine); Ordered 06/24/24 Ordered By: Bolivar June Referrals: [facility] [Outside] Renata Harvey MD [Primary Care Provider] - 4-7 days Discharge Diet: Cardiac Discharge Activity: As per PT/OT instructions Patient Instructions: Hydralazine (By mouth), Isosorbide Mononitrate (By mouth) Activity Restrictions/Additional Instructions: Continue to monitor blood pressure twice daily, continue to optimize hypertension. Target blood pressure 120/80. Please follow-up kidney function on Saturday. Discharge Attestations Time Spent in Discharge Care*: greater than 30 min Quality Metrics Clinical Quality Measures [ No reported AMI, CVA or VTE this stay] Coding Level of Care Code 11887 Total time (in minutes) for Discharge: 35 Diagnoses Hypertension I1A.0 Hypertension type: resistant hypertension Adult failure to thrive R62.7 GERD (gastroesophageal reflux disease) K21.9 Kidney disease N28.9 BPH (benign prostatic hyperplasia) N40.0 Dementia F03.90 Wrist swelling M25.439
--- NOTE | 2024-06-24 09:42 | PC.NURSE ---
This nurse gave report to HEIKE Love at [facility] at 940am. Transport should be here at 1000 am to take pt back to [facility].
[2024-06-24 11:25] VITALS: BP 140/82; PULSE 80; O2SAT 98
== END 2024-06-24 10:55 | disposition skilled nursing facility (03) ==
LOC: ER 21:39 → MEDSURG 21:57
PROVIDERS: Internal Medicine; Admitting Provider Internal Medicine; Emergency Provider Emergency Medicine; PCP Family Medicine; Visit Provider Internal Medicine
DX: R62.7 Adult failure to thrive (principal); I1A.0 Resistant hypertension; K21.9 Gastro-esophageal reflux disease without esophagitis; N28.9 Disorder of kidney and ureter, unspecified; N40.0 Benign prostatic hyperplasia without lower urinary tract symptoms; F03.90 Unspecified dementia, unspecified severity, without behavioral disturbance, psychotic disturbance, mood disturbance, and anxiety; M25.439 Effusion, unspecified wrist; Z86.73 Personal history of transient ischemic attack (TIA), and cerebral infarction without residual deficits; I12.9 Hypertensive chronic kidney disease with stage 1 through stage 4 chronic kidney disease, or unspecified chronic kidney disease; N18.4 Chronic kidney disease, stage 4 (severe); Z99.3 Dependence on wheelchair; F17.210 Nicotine dependence, cigarettes, uncomplicated; E86.0 Dehydration; Z75.1 Person awaiting admission to adequate facility elsewhere
CPT/HCPCS: 36415; 71045; 80048; 80053; 82607; 83735; 83880; 84443; 84550; 85025; 87426; 93005; 96372; 96374; 97110; 97161; 97166; 97530; 99285; G0378; J0360; J1650

== ENCOUNTER → 2024-09-02 09:38 | Outpatient (BNVA) | payer SELFPAY | PROVIDERS: PCP Family Medicine; Visit Provider Nurse Practitioner Family | DX: N28.9 Disorder of kidney and ureter, unspecified (principal) | CPT/HCPCS: 80069; 82306; 82310; 83970; 85025 ==